=== PATIENT | female | born 1995 | race Caucasian/White ===

== ENCOUNTER 2019-11-05 13:02 | Day surgery (SDC) | payer MEDICAID, SELFPAY ==
[2019-11-05 10:38] VITALS: BMI 21.6
[2019-11-05 13:31] VITALS: BP 121/88; PULSE 80; RESP 18; TEMP 36.5; O2SAT 99
--- NOTE | 2019-11-05 13:52 | ANES.PREANE2 ---
Pre-Anesthetic Assessment Pre-Anesthetic Assessment: Height/Weight: Height 1.63 m Weight 57.153 kg Preop Diagnosis: Catheterizable stomal stenosis Proposed Procedure: Operation Date: 11/05/19 14:35 Proposed Procedures p Cystoscopy 21852 R33.9 dilation of catheterizable stoma(Not Applicable) - Colin Jarrett MD Familial anesthetic complications: NO trouble Was Beta Farideh taken within 24 hours: N/A Last intake: 1 Peppermint at 0954 Social: Social History: No alcohol and No tobacco Exam: Pre-Anes Outpt Exam: alert, oriented x 3, clear to auscultation bilaterally and regular rate & rhythm Airway: Cervical ROM: WNL MP: 2 Dentition: Full Pulmonary: Pulmonary: None reported CV/HEM: CV/HEM: None reported : : None reported Hepatic: Hepatic: None reported GI: GI: None reported Metabolic: Metabolic: None reported Musc/skel: Musc/skel: None reported Neuropsych: Comments: Spina bifida (myelomeninogecele) Lumbar level 4 Anesthetic Plan: ASA status: 3 Anesthesia: General Risk of > 500 ml blood loss (7ml/kg in children): No PFSH Anesthesia PFSH: Social History Smoking and tobacco status: never smoked Alcohol intake: current Alcohol intake frequency: few times a month Marital status: Single Current occupational status: disabled History of recent travel: No Female Reproductive History: Date of last menstrual period: 10/15/19 Data Anesthesia Cardiac Studies: No Data to Display
[2019-11-05] MEDS: sodium chloride 0.9% 1,000 ML 30 ML IV (14:00)
[2019-11-05 14:06] LABS: HCG, Serum Qual Negative (Negative)
[2019-11-05] MEDS: levofloxacin-dextrose 5 % 500 MG/100 ML PREMIX 100 MG IV (14:50)
[2019-11-05 16:11] VITALS: BP 112/77; PULSE 103; RESP 18; TEMP 36.2; O2SAT 100
--- NOTE | 2019-11-05 16:16 | PM.OP ---
Operative Report Date of procedure: November 05, 2019 Pre-op Diagnosis: Catheterizable stomal stenosis Post-op diagnosis: same Procedure Done: Cystoscopy Dilation of catheterizable stoma with difficult catheter placement through stoma. Implants: 7 Cambodian by 24 cm double-pigtail stent with proximal end in the bladder and the distal end through the stoma onto the abdominal wall. Ostomy bag placed over that for urine collection as needed Pathology: none sent Anesthesia: MAC Estimated blood loss: Minimal Findings: Dilated to 12 Cambodian but could only get a 7 Cambodian ureteral stent through. Could not advance a 8 Cambodian or 10 Cambodian Mejia catheter. Ostomy bag placed over the catheter/stent to collect urine that drained through the hollow tube. Condition: stable Disposition: PACU Procedure: After routine preoperative evaluation examination and obtaining informed consent she was taken to the operating suite on 11/05/2019 where general anesthesia was administered without difficulty after appropriate timeout was performed, SCDs confirmed to be functioning, preoperative antibiotics administered and beta-gisele protocol confirmed. A 6 Cambodian mini scope was utilized to visualize the catheterizable stoma. It was not completely clear where the true lumen was but eventually a wire was advanced through a mucosal appearing area in the central aspect and the wire did advance relatively easily. The bladder was then scoped and the wire was identified passing into the bladder. Amplatz dilators were then utilized from 8 Cambodian to 10 Cambodian and the 12 Cambodian could not be passed all the way into the bladder over the wire. Attempts at passing a 10 Cambodian catheter were unsuccessful and for that reason it was decided to place a ureteral stent a 7 Cambodian by 24 cm specifically without string attached. Because of its hollow status knowing that urine would leak out of it an ostomy appliance was placed over the site to try to contain the urine and she was instructed postoperatively to continue self-catheterization per urethra until this was exchanged for a more typical Mejia bag with routine drainage appliance. She tolerated procedure well without complications and was awakened in the operating room and returned to cover in a stable condition. PLANS: 1. Follow-up in 4 to 7 days for inspection of the stent and possibly trial of larger catheter 2. Continue ostomy appliance until reevaluation. Prescription for urostomy specific appliance was written.
[2019-11-05 16:28] VITALS: BP 107/80; PULSE 93; RESP 18; TEMP 36.2; O2SAT 100
--- NOTE | 2019-11-05 16:28 | PM.HPUD ---
H&P update H&P Update: DATE OF SURGERY/PROCEDURE: 11/05/19 DATE H&P PERFORMED: 11/04/19 CHANGES TO PREVIOUS DOCUMENTATION: None PREOP DIAGNOSIS: Catheterizable stomal stenosis PLANNED PROCEDURE: Operation Date: 11/05/19 14:35 Proposed Procedures p Cystoscopy 66186 R33.9 dilation of catheterizable stoma(Not Applicable) - Colin Jarrett MD Full H&P Medications/Allergies: Current Medications: Current Medications Generic Name Dose Route Start Last Admin Trade Name Freq PRN Reason Stop Dose Admin Sodium Chloride 1,000 mls @ 30 ml s/hr 11/05/19 13:00 11/05/19 14:00 Sodium Chloride 0.9% IV 11/06/19 12:59 30 mls/hr .Q24H ADALID Administration Perinent History: Medical/Surgical History: Medical History (Updated 11/04/19 @ 16:20 by Colin Jarrett MD) Neurogenic bladder (Acute) Paraplegia, unspecified (Acute) Stenosis of continent ileal conduit stoma (Acute) Urinary retention (Acute) Spina bifida, neurogenic bladder with retention, treated with augmentation cystoplasty and catheterizable stoma. Family History: Family History Family/Other No problems noted. Social History: Social History Smoking and tobacco status: never smoked Alcohol intake: current Alcohol intake frequency: few times a month Marital status: Single Current occupational status: disabled History of recent travel: No
== END 2019-11-05 17:00 | disposition home or self-care (01) ==
PROVIDERS: PCP Nurse Practitioner; Visit Provider Urology
PROC: 0TJB8ZZ Inspection of Bladder, Via Natural or Artificial Opening Endoscopic (ICD-10-PCS; CPT 52000; principal; 2019-11-05 14:15)
DX: N99.524 Stenosis of incontinent stoma of urinary tract (principal)
CPT/HCPCS: 52281; 12345; 36415; 84703; C2625; J1956; J2250; J2704; J3010; J3490; J7030

== ENCOUNTER → 2020-02-15 16:30 | Outpatient (BNVA) | payer MEDICAID, SELFPAY | PROVIDERS: PCP Nurse Practitioner; Visit Provider Nurse Practitioner Family | DX: Z23 Encounter for immunization (principal); R00.2 Palpitations; F41.9 Anxiety disorder, unspecified; F32.9 Major depressive disorder, single episode, unspecified | CPT/HCPCS: 80053; 80156; 83735; 84439; 84443; 84481; 85025 ==

== ENCOUNTER → 2020-07-26 11:14 | Outpatient (BNVA) | payer MEDICAID, SELFPAY | PROVIDERS: PCP Nurse Practitioner; Visit Provider Nurse Practitioner Family | DX: F32.9 Major depressive disorder, single episode, unspecified (principal); F41.9 Anxiety disorder, unspecified | CPT/HCPCS: 80053; 80156; 85025 ==

== ENCOUNTER 2020-08-31 06:00 | Outpatient (RCR) | payer MEDICAID, SELFPAY | END 2020-09-29 23:59 | disposition home or self-care (01) | LOC: SPT 06:00 | PROVIDERS: PCP Nurse Practitioner Family; Referring Provider Nurse Practitioner Family; Visit Provider Nurse Practitioner Family | DX: M54.6 Pain in thoracic spine (principal); G89.29 Other chronic pain; M54.2 Cervicalgia | CPT/HCPCS: 97110; 97140; 97161 ==

== ENCOUNTER 2020-09-30 06:00 | Outpatient (RCR) | payer MEDICAID, SELFPAY | END 2020-10-30 23:59 | disposition home or self-care (01) | LOC: SPT 06:00 | PROVIDERS: PCP Nurse Practitioner Family; Referring Provider Nurse Practitioner Family; Visit Provider Nurse Practitioner Family | DX: M54.6 Pain in thoracic spine (principal); M54.2 Cervicalgia; G89.29 Other chronic pain | CPT/HCPCS: 97110 ==

== ENCOUNTER 2020-10-31 06:00 | Outpatient (RCR) | payer MEDICAID, SELFPAY | END 2020-11-27 23:59 | disposition home or self-care (01) | LOC: SPT 06:00 | PROVIDERS: PCP Nurse Practitioner Family; Referring Provider Nurse Practitioner Family; Visit Provider Nurse Practitioner Family | DX: M54.2 Cervicalgia (principal); M54.9 Dorsalgia, unspecified | CPT/HCPCS: 97110 ==

== ENCOUNTER 2020-11-28 06:00 | Outpatient (RCR) | payer MEDICAID, SELFPAY | END 2020-12-28 23:59 | disposition home or self-care (01) | LOC: SPT 06:00 | PROVIDERS: PCP Nurse Practitioner Family; Referring Provider Nurse Practitioner Family; Visit Provider Nurse Practitioner Family | DX: M54.6 Pain in thoracic spine (principal); G89.29 Other chronic pain; M54.2 Cervicalgia | CPT/HCPCS: 97110 ==

== ENCOUNTER → 2021-02-09 14:25 | Outpatient (BNVA) | payer MEDICAID, SELFPAY | PROVIDERS: PCP Nurse Practitioner Family; Visit Provider Nurse Practitioner Family | DX: F32.9 Major depressive disorder, single episode, unspecified (principal); F41.9 Anxiety disorder, unspecified; G40.909 Epilepsy, unspecified, not intractable, without status epilepticus; Z68.23 Body mass index [BMI] 23.0-23.9, adult | CPT/HCPCS: 80053; 80156; 84443; 85025 ==

== ENCOUNTER 2021-05-02 15:52 | Outpatient (CLI) | payer MEDICAID, SELFPAY ==
--- NOTE | 2021-05-02 16:07 | XR_ITS ---
WS: [id number] Right foot, 3 views, 05/02/2021 Clinical Data: FOOT PAIN, RIGHT Comparison: None. Findings: No fractures or dislocations are seen. No bone destruction or erosion is noted. The joint spaces and soft tissues are normal. There is demineralization of the bones of the foot. XR/XR foot RT min 3V* 87377 Impression: Negative right foot.
== END 2021-05-02 15:53 | disposition home or self-care (01) ==
PROVIDERS: PCP Nurse Practitioner Family; Visit Provider Nurse Practitioner Family
DX: M79.671 Pain in right foot (principal)
CPT/HCPCS: 73630

== ENCOUNTER → 2021-08-10 00:01 | Outpatient (BNVA) | payer MEDICAID, SELFPAY | PROVIDERS: PCP Nurse Practitioner Family | DX: L08.9 Local infection of the skin and subcutaneous tissue, unspecified (principal) | CPT/HCPCS: 87070; 87077; 87184 ==

== ENCOUNTER → 2021-10-25 13:41 | Outpatient (BNVA) | payer MEDICAID, SELFPAY | PROVIDERS: PCP Nurse Practitioner Family; Visit Provider Nurse Practitioner Family | DX: G40.909 Epilepsy, unspecified, not intractable, without status epilepticus (principal) | CPT/HCPCS: 80053; 80156; 85025 ==

== ENCOUNTER → 2021-12-14 12:00 | Outpatient (BNVA) | payer MEDICAID, SELFPAY | PROVIDERS: PCP Nurse Practitioner Family; Visit Provider Nurse Practitioner Family | DX: J30.9 Allergic rhinitis, unspecified (principal) | CPT/HCPCS: 82785; 86003 ==

== ENCOUNTER → 2022-01-16 13:47 | Outpatient (BNVA) | payer MEDICAID, SELFPAY | PROVIDERS: PCP Nurse Practitioner Family; Visit Provider Nurse Practitioner Family | DX: R30.0 Dysuria (principal) | CPT/HCPCS: 81003; 87077; 87086; 87184 ==

== ENCOUNTER → 2022-02-09 09:03 | Outpatient (BNVA) | payer MEDICAID, SELFPAY | PROVIDERS: PCP Nurse Practitioner Family; Visit Provider Urology | DX: N99.53 Complication of continent stoma of urinary tract (principal); R33.9 Retention of urine, unspecified | CPT/HCPCS: 81003; 99213 ==

== ENCOUNTER → 2022-02-16 09:46 | Outpatient (BNVA) | payer MEDICAID, SELFPAY | PROVIDERS: PCP Nurse Practitioner Family; Visit Provider Surgery | DX: I96 Gangrene, not elsewhere classified (principal); L89.622 Pressure ulcer of left heel, stage 2 | CPT/HCPCS: 99203 ==

== ENCOUNTER 2022-02-16 11:11 | Outpatient (CLI) | payer MEDICAID, SELFPAY ==
--- NOTE | 2022-02-16 13:53 | XR_ITS ---
WS: [id number] Left foot, 3 views, 02/16/2022 Clinical Data: ulcer Comparison: None. Findings: No fractures or dislocations are seen. The joint spaces are normal. There is soft tissue ulceration p osterior to the calcaneus but there is no bone destruction or erosion. The foot is in the flexed position. XR/XR foot LT min 3V* [id number] Impression: 1. Negative for bone destruction or evidence of osteomyelitis. 2. Left foot is fixed in flexion.
== END 2022-02-16 11:12 | disposition home or self-care (01) ==
LOC: RAD 11:15
PROVIDERS: PCP Nurse Practitioner Family; Visit Provider Surgery
DX: L89.622 Pressure ulcer of left heel, stage 2 (principal)
CPT/HCPCS: 73630; 97597; 99213

== ENCOUNTER → 2022-02-23 09:27 | Outpatient (BNVA) | payer MEDICAID, SELFPAY | PROVIDERS: PCP Nurse Practitioner Family; Visit Provider Surgery | DX: L89.622 Pressure ulcer of left heel, stage 2 (principal); I96 Gangrene, not elsewhere classified | CPT/HCPCS: 97597 ==

== ENCOUNTER → 2022-03-02 09:23 | Outpatient (BNVA) | payer MEDICAID, SELFPAY | PROVIDERS: PCP Nurse Practitioner Family; Visit Provider Surgery | DX: I96 Gangrene, not elsewhere classified (principal); L89.622 Pressure ulcer of left heel, stage 2 | CPT/HCPCS: 97597; A6212 ==

== ENCOUNTER → 2022-03-09 09:21 | Outpatient (BNVA) | payer MEDICAID, SELFPAY | PROVIDERS: PCP Nurse Practitioner Family; Visit Provider Nurse Practitioner Family | DX: L89.622 Pressure ulcer of left heel, stage 2 (principal); I96 Gangrene, not elsewhere classified | CPT/HCPCS: 11042; A6212 ==

== ENCOUNTER → 2022-03-16 09:35 | Outpatient (BNVA) | payer MEDICAID, SELFPAY | PROVIDERS: PCP Nurse Practitioner Family; Visit Provider Nurse Practitioner Family | DX: L89.622 Pressure ulcer of left heel, stage 2 (principal); I96 Gangrene, not elsewhere classified | CPT/HCPCS: 11042 ==

== ENCOUNTER → 2022-03-23 09:16 | Outpatient (BNVA) | payer MEDICAID, SELFPAY | PROVIDERS: PCP Nurse Practitioner Family; Visit Provider Nurse Practitioner Family | DX: I96 Gangrene, not elsewhere classified (principal); L89.622 Pressure ulcer of left heel, stage 2 | CPT/HCPCS: 11042 ==

== ENCOUNTER → 2022-03-30 10:36 | Outpatient (BNVA) | payer MEDICAID, SELFPAY | PROVIDERS: PCP Nurse Practitioner Family; Visit Provider Surgery | DX: I96 Gangrene, not elsewhere classified (principal); L89.622 Pressure ulcer of left heel, stage 2 | CPT/HCPCS: 11042; A6197; A6212; A6251 ==

== ENCOUNTER → 2022-04-06 10:32 | Outpatient (BNVA) | payer MEDICAID, SELFPAY | PROVIDERS: PCP Nurse Practitioner Family; Visit Provider Surgery | DX: I96 Gangrene, not elsewhere classified (principal); L89.622 Pressure ulcer of left heel, stage 2 | CPT/HCPCS: 15271; A6206; A6212 ==

== ENCOUNTER → 2022-04-13 10:33 | Outpatient (BNVA) | payer MEDICAID, SELFPAY | PROVIDERS: PCP Nurse Practitioner Family; Visit Provider Surgery | DX: I96 Gangrene, not elsewhere classified (principal); L89.622 Pressure ulcer of left heel, stage 2 | CPT/HCPCS: 15271 ==

== ENCOUNTER → 2022-04-20 09:33 | Outpatient (BNVA) | payer MEDICAID, SELFPAY | PROVIDERS: PCP Nurse Practitioner Family; Visit Provider Nurse Practitioner Family | DX: I96 Gangrene, not elsewhere classified (principal); L89.622 Pressure ulcer of left heel, stage 2 | CPT/HCPCS: 11042 ==

== ENCOUNTER → 2022-04-24 15:14 | Outpatient (BNVA) | payer MEDICAID, SELFPAY | PROVIDERS: PCP Nurse Practitioner Family; Visit Provider Nurse Practitioner Family | DX: I96 Gangrene, not elsewhere classified (principal); L89.622 Pressure ulcer of left heel, stage 2 | CPT/HCPCS: 11042; 87070; 87077; 87186; A6210 ==

== ENCOUNTER → 2022-05-01 09:21 | Outpatient (BNVA) | payer MEDICAID, SELFPAY | PROVIDERS: PCP Nurse Practitioner Family; Visit Provider Nurse Practitioner Family | DX: I96 Gangrene, not elsewhere classified (principal); L89.622 Pressure ulcer of left heel, stage 2 | CPT/HCPCS: 11042 ==

== ENCOUNTER → 2022-05-11 10:02 | Outpatient (BNVA) | payer MEDICAID, SELFPAY | PROVIDERS: PCP Nurse Practitioner Family; Visit Provider Nurse Practitioner Family | DX: I96 Gangrene, not elsewhere classified (principal); L89.622 Pressure ulcer of left heel, stage 2 | CPT/HCPCS: 11042; A6210 ==

== ENCOUNTER 2022-05-14 12:31 | Outpatient (CLI) | payer MEDICAID, SELFPAY ==
--- NOTE | 2022-05-14 12:00 | US_ITS ---
WS: [id number] ULTRASOUND RENAL TECHNIQUE: Ultrasound examination of both kidneys. CLINICAL INFORMATION: Urinary Retention COMPARISON: Ultrasound 1 16019 FINDINGS: Technically difficult examination. Patient with spina bifida and scoliosis. RIGHT: Right kidney is normal appearance. Echogenicity: Normal. Cortical thickness: 1.2 cm; Normal. Hydronephrosis: None. Perinephric fluid: None. Right kidney measures: 7.4 cm x 4.2 cm x 4.1 cm. LEFT: Left kidney is normal appearance. Echogenicity: Normal. Cortical thickness: 1.5 cm; Normal. Hydronephrosis: None. Perinephric fluid: None. Left kidney measures: 8.7 cm x 3.7 cm x 4.5 cm. Normal visualized aorta. US/US renal BI* [id number] IMPRESSION: Technically difficult examination. Normal renal ultrasound.
[2022-05-14 15:32] LABS: Anion Gap 12.6 (5-19); Blood Urea Nitrogen 10 mg/dL (6-20); Calcium 9.1 mg/dL (8.5-10.5); Carbon Dioxide 28 mmol/L (22-29); Chloride 104 mmol/L (98-107); Glucose 77 mg/dL (65-115); Osmolality Calculated 290 mOsm/kg (285-295); Potassium 3.6 mmol/L (3.5-5.1); Sodium 141 mmol/L (136-145)
== END 2022-05-14 12:32 | disposition home or self-care (01) ==
LOC: RAD 12:31
PROVIDERS: PCP Nurse Practitioner Family; Visit Provider Urology
DX: R33.9 Retention of urine, unspecified (principal); N31.9 Neuromuscular dysfunction of bladder, unspecified; N99.53 Complication of continent stoma of urinary tract
CPT/HCPCS: 36415; 76770; 80048; 81000; 99213

== ENCOUNTER → 2022-05-18 09:24 | Outpatient (BNVA) | payer MEDICAID, SELFPAY | PROVIDERS: PCP Nurse Practitioner Family; Visit Provider Nurse Practitioner Family | DX: L89.622 Pressure ulcer of left heel, stage 2 (principal); I96 Gangrene, not elsewhere classified | CPT/HCPCS: 11042; 87070; 87176; 87205 ==

== ENCOUNTER → 2022-05-25 13:47 | Outpatient (BNVA) | payer MEDICAID, SELFPAY | PROVIDERS: PCP Nurse Practitioner Family; Visit Provider Surgery | DX: I96 Gangrene, not elsewhere classified (principal); L89.622 Pressure ulcer of left heel, stage 2 | CPT/HCPCS: 15271; A6206; Q4205 ==

== ENCOUNTER → 2022-06-01 10:28 | Outpatient (BNVA) | payer MEDICAID, SELFPAY | PROVIDERS: PCP Nurse Practitioner Family; Visit Provider Surgery | DX: I96 Gangrene, not elsewhere classified (principal); L89.622 Pressure ulcer of left heel, stage 2 | CPT/HCPCS: 15271; A6207 ==

== ENCOUNTER → 2022-06-08 09:00 | Outpatient (BNVA) | payer MEDICAID, SELFPAY | PROVIDERS: PCP Nurse Practitioner Family; Visit Provider Nurse Practitioner Family | DX: I96 Gangrene, not elsewhere classified (principal); L89.622 Pressure ulcer of left heel, stage 2 | CPT/HCPCS: 15275; Q4205 ==

== ENCOUNTER → 2022-06-15 10:00 | Outpatient (BNVA) | payer MEDICAID, SELFPAY | PROVIDERS: PCP Nurse Practitioner Family; Visit Provider Nurse Practitioner Family | DX: I96 Gangrene, not elsewhere classified (principal); L89.622 Pressure ulcer of left heel, stage 2 | CPT/HCPCS: 15275; A6206; Q4205 ==

== ENCOUNTER → 2022-06-22 09:59 | Outpatient (BNVA) | payer MEDICAID, SELFPAY | PROVIDERS: PCP Nurse Practitioner Family; Visit Provider Surgery | DX: I96 Gangrene, not elsewhere classified (principal); L89.622 Pressure ulcer of left heel, stage 2 | CPT/HCPCS: 11042; 15275; A6206; A6250; Q4205 ==

== ENCOUNTER → 2022-06-29 10:10 | Outpatient (BNVA) | payer MEDICAID, SELFPAY | PROVIDERS: PCP Nurse Practitioner Family; Visit Provider Surgery | DX: I96 Gangrene, not elsewhere classified (principal); L89.622 Pressure ulcer of left heel, stage 2 | CPT/HCPCS: 15275; A6206; Q4205 ==

== ENCOUNTER → 2022-07-06 13:48 | Outpatient (BNVA) | payer MEDICAID, SELFPAY | PROVIDERS: PCP Nurse Practitioner Family; Visit Provider Surgery | DX: I96 Gangrene, not elsewhere classified (principal); L89.622 Pressure ulcer of left heel, stage 2 | CPT/HCPCS: 15271; A6206; A6250; A6251 ==

== ENCOUNTER → 2022-07-13 13:50 | Outpatient (BNVA) | payer MEDICAID, SELFPAY | PROVIDERS: PCP Nurse Practitioner Family; Visit Provider Surgery | DX: I96 Gangrene, not elsewhere classified (principal); L89.622 Pressure ulcer of left heel, stage 2 | CPT/HCPCS: 11042; A6212 ==

== ENCOUNTER 2022-07-17 14:28 | Outpatient (CLI) | payer MEDICAID, SELFPAY ==
--- NOTE | 2022-07-17 14:30 | USCV_ITS ---
Fiona Parnell Age: 26 Gender: F : 1995 Exam Date: 07/17/2022 14:47 Ordering Phys: Alexander Austin MD Technologist: Darinel Krueger [place]am [place] [facility] [place] Indication: pain in left leg PROCEDURES: Venous duplex imaging was performed in only the left lower extremity. The following venous structures were evaluated: common femoral vein, profunda vein, proximal portion of the greater saphenous vein, superficial femoral vein, and the popliteal vein. In addition, the posterior tibial and peroneal trunk were evaluated. Serial compression, augmentation maneuvers, and spectral Doppler flow evaluation were performed. FINDINGS: Normal 2-D Doppler and augmentation and compressibility throughout the lower extremity venous structures. Additional imaging through the proximal calf veins also reveals no thrombus. Limited evaluation of the greater saphenous vein is patent with no thrombus.. CONCLUSIONS No evidence of left lower extremity DVT. Leandro Kauffman MD (Electronically Signed) Final Date: 17 July 2022 15:42 S
== END 2022-07-17 14:29 | disposition home or self-care (01) ==
LOC: RAD 14:28
PROVIDERS: PCP Nurse Practitioner Family; Visit Provider Surgery
DX: M79.605 Pain in left leg (principal)
CPT/HCPCS: 93971

== ENCOUNTER → 2022-07-20 13:49 | Outpatient (BNVA) | payer MEDICAID, SELFPAY | PROVIDERS: PCP Nurse Practitioner Family; Visit Provider Nurse Practitioner Family | DX: I96 Gangrene, not elsewhere classified (principal); L89.622 Pressure ulcer of left heel, stage 2 | CPT/HCPCS: 11042; A6212 ==

== ENCOUNTER → 2022-07-27 09:26 | Outpatient (BNVA) | payer MEDICAID, SELFPAY | PROVIDERS: PCP Nurse Practitioner Family; Visit Provider Nurse Practitioner Family | DX: I96 Gangrene, not elsewhere classified (principal); L89.622 Pressure ulcer of left heel, stage 2 | CPT/HCPCS: 11042 ==

== ENCOUNTER → 2022-07-31 10:01 | Outpatient (BNVA) | payer MEDICAID, SELFPAY | PROVIDERS: PCP Nurse Practitioner Family; Visit Provider Nurse Practitioner Family | DX: I96 Gangrene, not elsewhere classified (principal); L89.622 Pressure ulcer of left heel, stage 2 | CPT/HCPCS: 11042 ==

== ENCOUNTER → 2022-08-10 10:15 | Outpatient (BNVA) | payer MEDICAID, SELFPAY | PROVIDERS: PCP Nurse Practitioner Family; Visit Provider Nurse Practitioner Family | DX: I96 Gangrene, not elsewhere classified (principal); L89.622 Pressure ulcer of left heel, stage 2 | CPT/HCPCS: 11042 ==

== ENCOUNTER → 2022-08-17 13:58 | Outpatient (BNVA) | payer MEDICAID, SELFPAY | PROVIDERS: PCP Nurse Practitioner Family; Visit Provider Surgery | DX: I96 Gangrene, not elsewhere classified (principal); L89.622 Pressure ulcer of left heel, stage 2 | CPT/HCPCS: 11042 ==

== ENCOUNTER → 2022-08-31 10:09 | Outpatient (BNVA) | payer MEDICAID, SELFPAY | PROVIDERS: PCP Nurse Practitioner Family; Visit Provider Nurse Practitioner Family | DX: I96 Gangrene, not elsewhere classified (principal); L89.622 Pressure ulcer of left heel, stage 2 | CPT/HCPCS: 11042 ==

== ENCOUNTER → 2022-09-07 10:19 | Outpatient (BNVA) | payer MEDICAID, SELFPAY | PROVIDERS: PCP Nurse Practitioner Family; Visit Provider Nurse Practitioner Family | DX: I96 Gangrene, not elsewhere classified (principal); L89.622 Pressure ulcer of left heel, stage 2 | CPT/HCPCS: 11042; A6212 ==

== ENCOUNTER → 2022-09-14 09:33 | Outpatient (BNVA) | payer MEDICAID, SELFPAY | PROVIDERS: PCP Nurse Practitioner Family; Visit Provider Surgery | DX: I96 Gangrene, not elsewhere classified (principal); L89.622 Pressure ulcer of left heel, stage 2; G82.20 Paraplegia, unspecified | CPT/HCPCS: 97597; A6212 ==

== ENCOUNTER → 2022-10-05 10:11 | Outpatient (BNVA) | payer MEDICAID, SELFPAY | PROVIDERS: PCP Nurse Practitioner Family; Visit Provider Thoracic Surgery (Cardiothoracic Vascular Surgery) | DX: I96 Gangrene, not elsewhere classified (principal); L89.622 Pressure ulcer of left heel, stage 2 | CPT/HCPCS: 97597; A6021; A6212 ==

== ENCOUNTER → 2022-10-12 10:39 | Outpatient (BNVA) | payer MEDICAID, SELFPAY | PROVIDERS: PCP Nurse Practitioner Family; Visit Provider Thoracic Surgery (Cardiothoracic Vascular Surgery) | DX: I96 Gangrene, not elsewhere classified (principal); L89.622 Pressure ulcer of left heel, stage 2 | CPT/HCPCS: 11042; A6021 ==

== ENCOUNTER → 2022-10-19 10:58 | Outpatient (BNVA) | payer MEDICAID, SELFPAY | PROVIDERS: PCP Nurse Practitioner Family; Visit Provider Thoracic Surgery (Cardiothoracic Vascular Surgery) | DX: I96 Gangrene, not elsewhere classified (principal); L89.622 Pressure ulcer of left heel, stage 2 | CPT/HCPCS: 97597; A6021; A6212 ==

== ENCOUNTER → 2022-10-26 10:46 | Outpatient (BNVA) | payer MEDICAID, SELFPAY | PROVIDERS: PCP Nurse Practitioner Family; Visit Provider Thoracic Surgery (Cardiothoracic Vascular Surgery) | DX: L89.622 Pressure ulcer of left heel, stage 2 (principal) | CPT/HCPCS: 97597; A6021; A6212 ==

== ENCOUNTER → 2022-11-02 10:27 | Outpatient (BNVA) | payer MEDICAID, SELFPAY | PROVIDERS: PCP Nurse Practitioner Family; Visit Provider Thoracic Surgery (Cardiothoracic Vascular Surgery) | DX: Z09 Encounter for follow-up examination after completed treatment for conditions other than malignant neoplasm (principal) | CPT/HCPCS: 99212 ==

== ENCOUNTER 2023-01-08 10:16 | Outpatient (CLI) | payer MEDICAID, SELFPAY ==
--- NOTE | 2023-01-08 10:44 | XR_ITS ---
WS: [id number] EXAMINATION: XR lumbar spine 2-3V* [id number] L-SPINE : 3 views REASON FOR EXAM: M54.9 - Dorsalgia, unspecified COMPARISON: None available. ORDER DATE: 01/08/2023 10:47 AM FINDINGS: There is approximately a 15 degree dextroscoliosis in the lower lumbar region with bridging bar horiz ontal screws on the right lateral aspect of the lumbar spine extending from L1 to L5 with complete ve rtebral body fusion throughout these levels as depicted on the lateral view. The most proximal screw is within T12 and separate from the uterus. This may have occurred as a result of growth of the spine . There is a ventriculoperitoneal shunt catheter in the peritoneal cavity. XR/XR lumbar spine 2-3V* 67635 IMPRESSION: Surgical instrumentation as described above with solid fusion of most of the laureen mbar spine as described.
--- NOTE | 2023-01-08 10:44 | XR_ITS ---
WS: [id number] EXAMINATION: XR thoracic spine 3V* [id number] REASON FOR EXAM: M54.9 - Dorsalgia, unspecified COMPARISON: Recent previous studies ORDER DATE: 01/08/2023 10:47 AM FINDINGS: There is approximately a 12 degree lumbar levoscoliosis originating at approximately the T7-8 level w ith compensatory dextrocurvature in the lumbar region with previous surgical instrumentation as noted . Ventriculoperitoneal shunt catheters are present. No specific focal osseous change noted in the tho racic vertebral bodies. XR/XR thoracic spine 3V* 60495 IMPRESSION: No sign of acute osseous change in the dorsal spine
== END 2023-01-08 10:17 | disposition home or self-care (01) ==
LOC: RAD 10:19
PROVIDERS: PCP Nurse Practitioner Family; Visit Provider Nurse Practitioner Family
DX: M54.9 Dorsalgia, unspecified (principal)
CPT/HCPCS: 72072; 72100

== ENCOUNTER → 2023-04-09 13:50 | Outpatient (BNVA) | payer MEDICAID, SELFPAY | PROVIDERS: PCP Nurse Practitioner Family; Visit Provider Family Medicine | DX: J02.9 Acute pharyngitis, unspecified (principal); L25.9 Unspecified contact dermatitis, unspecified cause | CPT/HCPCS: 87071; 87880 ==

== ENCOUNTER → 2023-06-27 09:08 | Outpatient (BNVA) | payer MEDICAID, SELFPAY | PROVIDERS: PCP Nurse Practitioner Family; Visit Provider Nurse Practitioner Family | DX: I96 Gangrene, not elsewhere classified (principal); L89.622 Pressure ulcer of left heel, stage 2 | CPT/HCPCS: 97597; 99213; A6210; A6212 ==

== ENCOUNTER → 2023-07-11 10:10 | Outpatient (BNVA) | payer MEDICAID, SELFPAY | PROVIDERS: PCP Nurse Practitioner Family; Visit Provider Nurse Practitioner Family | DX: L89.622 Pressure ulcer of left heel, stage 2 (principal) | CPT/HCPCS: 97597; A6210; A6212 ==

== ENCOUNTER → 2023-07-18 08:48 | Outpatient (BNVA) | payer MEDICAID, SELFPAY | PROVIDERS: PCP Nurse Practitioner Family; Visit Provider Nurse Practitioner Family | DX: L89.622 Pressure ulcer of left heel, stage 2 (principal) | CPT/HCPCS: 97597; A6210; A6212 ==

== ENCOUNTER → 2023-07-25 10:03 | Outpatient (BNVA) | payer MEDICAID, SELFPAY | PROVIDERS: PCP Nurse Practitioner Family; Visit Provider Nurse Practitioner Family | DX: L89.622 Pressure ulcer of left heel, stage 2 (principal) | CPT/HCPCS: 97597; A6210 ==

== ENCOUNTER → 2023-08-01 10:07 | Outpatient (BNVA) | payer MEDICAID, SELFPAY | PROVIDERS: PCP Nurse Practitioner Family; Visit Provider Nurse Practitioner Family | DX: I96 Gangrene, not elsewhere classified (principal); L89.622 Pressure ulcer of left heel, stage 2 | CPT/HCPCS: 97597; A6210 ==

== ENCOUNTER → 2023-08-08 09:50 | Outpatient (BNVA) | payer MEDICAID, SELFPAY | PROVIDERS: PCP Nurse Practitioner Family; Visit Provider Nurse Practitioner Family | DX: L89.622 Pressure ulcer of left heel, stage 2 (principal) | CPT/HCPCS: 97597; A6210 ==

== ENCOUNTER → 2023-08-15 10:46 | Outpatient (BNVA) | payer MEDICAID, SELFPAY | PROVIDERS: PCP Nurse Practitioner Family; Visit Provider Nurse Practitioner Family | DX: L89.622 Pressure ulcer of left heel, stage 2 (principal); S91.301A Unspecified open wound, right foot, initial encounter; W22.8XXA Striking against or struck by other objects, initial encounter; G82.20 Paraplegia, unspecified | CPT/HCPCS: 97597; 99212; A6210 ==

== ENCOUNTER → 2023-08-29 10:30 | Outpatient (BNVA) | payer MEDICAID, SELFPAY | PROVIDERS: PCP Nurse Practitioner Family; Visit Provider Nurse Practitioner Family | DX: L89.622 Pressure ulcer of left heel, stage 2 (principal); L89.892 Pressure ulcer of other site, stage 2 | CPT/HCPCS: 11042; A6210; A6219 ==

== ENCOUNTER → 2023-09-05 09:50 | Outpatient (BNVA) | payer MEDICAID, SELFPAY | PROVIDERS: PCP Nurse Practitioner Family; Visit Provider Nurse Practitioner Family | DX: I96 Gangrene, not elsewhere classified (principal); L89.622 Pressure ulcer of left heel, stage 2; L89.892 Pressure ulcer of other site, stage 2; G82.20 Paraplegia, unspecified | CPT/HCPCS: 97597; A6210; A6219 ==

== ENCOUNTER → 2023-09-12 08:40 | Outpatient (BNVA) | payer MEDICAID, SELFPAY | PROVIDERS: PCP Nurse Practitioner Family; Visit Provider Nurse Practitioner Family | DX: I96 Gangrene, not elsewhere classified (principal); L89.893 Pressure ulcer of other site, stage 3; L89.622 Pressure ulcer of left heel, stage 2 | CPT/HCPCS: 97597; A6210 ==

== ENCOUNTER → 2023-09-19 08:46 | Outpatient (BNVA) | payer MEDICAID, SELFPAY | PROVIDERS: PCP Nurse Practitioner Family; Visit Provider Thoracic Surgery (Cardiothoracic Vascular Surgery) | DX: I96 Gangrene, not elsewhere classified (principal); L89.893 Pressure ulcer of other site, stage 3; L89.622 Pressure ulcer of left heel, stage 2 | CPT/HCPCS: 11042; 97597; A6210 ==

== ENCOUNTER → 2023-09-26 08:49 | Outpatient (BNVA) | payer MEDICAID, SELFPAY | PROVIDERS: PCP Nurse Practitioner Family; Visit Provider Nurse Practitioner Family | DX: L89.893 Pressure ulcer of other site, stage 3 (principal); Z09 Encounter for follow-up examination after completed treatment for conditions other than malignant neoplasm; G82.20 Paraplegia, unspecified | CPT/HCPCS: 97597; A6210 ==

== ENCOUNTER → 2023-10-02 16:10 | Outpatient (BNVA) | payer MEDICAID, SELFPAY | PROVIDERS: PCP Nurse Practitioner Family; Visit Provider Nurse Practitioner Family | DX: G40.909 Epilepsy, unspecified, not intractable, without status epilepticus (principal); F41.9 Anxiety disorder, unspecified; F32.9 Major depressive disorder, single episode, unspecified; R00.2 Palpitations; J30.9 Allergic rhinitis, unspecified | CPT/HCPCS: 80053; 80061; 80157; 82306; 82607; 84443; 85025 ==

== ENCOUNTER → 2023-10-03 08:46 | Outpatient (BNVA) | payer MEDICAID, SELFPAY | PROVIDERS: PCP Nurse Practitioner Family; Visit Provider Nurse Practitioner Family | DX: I96 Gangrene, not elsewhere classified (principal); L89.893 Pressure ulcer of other site, stage 3 | CPT/HCPCS: 97597; A6210 ==

== ENCOUNTER → 2023-10-10 09:52 | Outpatient (BNVA) | payer MEDICAID, SELFPAY | PROVIDERS: PCP Nurse Practitioner Family; Visit Provider Nurse Practitioner Family | DX: I96 Gangrene, not elsewhere classified (principal); L97.412 Non-pressure chronic ulcer of right heel and midfoot with fat layer exposed | CPT/HCPCS: 97597 ==

== ENCOUNTER → 2023-10-17 09:00 | Outpatient (BNVA) | payer MEDICAID, SELFPAY | PROVIDERS: PCP Nurse Practitioner Family; Visit Provider Nurse Practitioner Family | DX: I96 Gangrene, not elsewhere classified (principal); L97.412 Non-pressure chronic ulcer of right heel and midfoot with fat layer exposed | CPT/HCPCS: 11042; A6252 ==

== ENCOUNTER → 2023-10-24 14:19 | Outpatient (BNVA) | payer MEDICAID, SELFPAY | PROVIDERS: PCP Nurse Practitioner Family; Visit Provider Nurse Practitioner Family | DX: L97.522 Non-pressure chronic ulcer of other part of left foot with fat layer exposed (principal) | CPT/HCPCS: 97597; A6210 ==

== ENCOUNTER → 2023-10-31 09:20 | Outpatient (BNVA) | payer MEDICAID, SELFPAY | PROVIDERS: PCP Nurse Practitioner Family; Visit Provider Nurse Practitioner Family | DX: I96 Gangrene, not elsewhere classified (principal); L97.512 Non-pressure chronic ulcer of other part of right foot with fat layer exposed | CPT/HCPCS: 97597 ==

== ENCOUNTER → 2023-11-07 09:10 | Outpatient (BNVA) | payer MEDICAID, SELFPAY | PROVIDERS: PCP Nurse Practitioner Family; Visit Provider Thoracic Surgery (Cardiothoracic Vascular Surgery) | DX: I96 Gangrene, not elsewhere classified (principal); L97.512 Non-pressure chronic ulcer of other part of right foot with fat layer exposed | CPT/HCPCS: 97597 ==

== ENCOUNTER → 2023-11-11 09:59 | Outpatient (BNVA) | payer MEDICAID, SELFPAY | PROVIDERS: PCP Nurse Practitioner Family; Visit Provider Nurse Practitioner Family | DX: E53.8 Deficiency of other specified B group vitamins (principal) | CPT/HCPCS: 82607; 82746 ==

== ENCOUNTER → 2023-11-14 08:56 | Outpatient (BNVA) | payer MEDICAID, SELFPAY | PROVIDERS: PCP Nurse Practitioner Family; Visit Provider Thoracic Surgery (Cardiothoracic Vascular Surgery) | DX: E11.52 Type 2 diabetes mellitus with diabetic peripheral angiopathy with gangrene (principal); E11.621 Type 2 diabetes mellitus with foot ulcer; L97.522 Non-pressure chronic ulcer of other part of left foot with fat layer exposed | CPT/HCPCS: 97597 ==

== ENCOUNTER → 2023-11-21 08:58 | Outpatient (BNVA) | payer MEDICAID, SELFPAY | PROVIDERS: PCP Nurse Practitioner Family; Visit Provider Thoracic Surgery (Cardiothoracic Vascular Surgery) | DX: I96 Gangrene, not elsewhere classified (principal); L97.412 Non-pressure chronic ulcer of right heel and midfoot with fat layer exposed | CPT/HCPCS: 97597 ==

== ENCOUNTER → 2023-11-28 08:57 | Outpatient (BNVA) | payer MEDICAID, SELFPAY | PROVIDERS: PCP Nurse Practitioner Family; Visit Provider Thoracic Surgery (Cardiothoracic Vascular Surgery) | DX: I96 Gangrene, not elsewhere classified (principal); L97.511 Non-pressure chronic ulcer of other part of right foot limited to breakdown of skin | CPT/HCPCS: 97597; A6021; A6210 ==

== ENCOUNTER → 2023-12-05 09:52 | Outpatient (BNVA) | payer MEDICAID, SELFPAY | PROVIDERS: PCP Nurse Practitioner Family; Visit Provider Thoracic Surgery (Cardiothoracic Vascular Surgery) | DX: Z09 Encounter for follow-up examination after completed treatment for conditions other than malignant neoplasm (principal); Z87.2 Personal history of diseases of the skin and subcutaneous tissue | CPT/HCPCS: 99212 ==

== ENCOUNTER → 2024-02-27 08:54 | Outpatient (BNVA) | payer MEDICAID, SELFPAY | PROVIDERS: PCP Nurse Practitioner Family; Visit Provider Thoracic Surgery (Cardiothoracic Vascular Surgery) | DX: I96 Gangrene, not elsewhere classified (principal); L97.521 Non-pressure chronic ulcer of other part of left foot limited to breakdown of skin | CPT/HCPCS: 97597; 99213; A6021 ==

== ENCOUNTER → 2024-03-05 09:07 | Outpatient (BNVA) | payer MEDICAID, SELFPAY | PROVIDERS: PCP Nurse Practitioner Family; Visit Provider Thoracic Surgery (Cardiothoracic Vascular Surgery) | DX: I96 Gangrene, not elsewhere classified (principal); L97.511 Non-pressure chronic ulcer of other part of right foot limited to breakdown of skin | CPT/HCPCS: 97597 ==

== ENCOUNTER → 2024-03-12 08:53 | Outpatient (BNVA) | payer MEDICAID, SELFPAY | PROVIDERS: PCP Nurse Practitioner Family; Visit Provider Thoracic Surgery (Cardiothoracic Vascular Surgery) | DX: L89.892 Pressure ulcer of other site, stage 2 (principal) | CPT/HCPCS: 97597 ==

== ENCOUNTER → 2024-03-18 09:15 | Outpatient (BNVA) | payer MEDICAID, SELFPAY | PROVIDERS: PCP Nurse Practitioner Family; Visit Provider Nurse Practitioner Family | DX: R56.9 Unspecified convulsions (principal); E53.8 Deficiency of other specified B group vitamins; Z79.899 Other long term (current) drug therapy | CPT/HCPCS: 80053; 80061; 80157; 82306; 82607; 85025 ==

== ENCOUNTER → 2024-03-19 10:28 | Outpatient (BNVA) | payer MEDICAID, SELFPAY | PROVIDERS: PCP Nurse Practitioner Family; Visit Provider Thoracic Surgery (Cardiothoracic Vascular Surgery) | DX: L89.892 Pressure ulcer of other site, stage 2 (principal) | CPT/HCPCS: 97597; A6212 ==

== ENCOUNTER → 2024-03-26 10:27 | Outpatient (BNVA) | payer MEDICAID, SELFPAY | PROVIDERS: PCP Nurse Practitioner Family; Visit Provider Thoracic Surgery (Cardiothoracic Vascular Surgery) | DX: Z09 Encounter for follow-up examination after completed treatment for conditions other than malignant neoplasm (principal); Z87.2 Personal history of diseases of the skin and subcutaneous tissue | CPT/HCPCS: 99212 ==

== ENCOUNTER → 2024-08-06 13:51 | Outpatient (BNVA) | payer MEDICAID, SELFPAY | PROVIDERS: PCP Nurse Practitioner Family; Visit Provider Thoracic Surgery (Cardiothoracic Vascular Surgery) | DX: L89.893 Pressure ulcer of other site, stage 3 (principal) | CPT/HCPCS: 97597; 99213; A6021 ==

== ENCOUNTER → 2024-08-13 14:26 | Outpatient (BNVA) | payer MEDICAID, SELFPAY | PROVIDERS: PCP Nurse Practitioner Family; Visit Provider Thoracic Surgery (Cardiothoracic Vascular Surgery) | DX: I96 Gangrene, not elsewhere classified (principal); L89.893 Pressure ulcer of other site, stage 3; Q05.9 Spina bifida, unspecified | CPT/HCPCS: 97597 ==

== ENCOUNTER → 2024-08-20 11:08 | Outpatient (BNVA) | payer MEDICAID, SELFPAY | PROVIDERS: PCP Nurse Practitioner Family; Visit Provider Thoracic Surgery (Cardiothoracic Vascular Surgery) | DX: L89.893 Pressure ulcer of other site, stage 3 (principal) | CPT/HCPCS: 97597 ==

== ENCOUNTER → 2024-08-26 11:05 | Outpatient (BNVA) | payer MEDICAID, SELFPAY | PROVIDERS: PCP Nurse Practitioner Family; Visit Provider Thoracic Surgery (Cardiothoracic Vascular Surgery) | DX: I96 Gangrene, not elsewhere classified (principal); L89.893 Pressure ulcer of other site, stage 3 | CPT/HCPCS: 97597 ==

== ENCOUNTER → 2024-09-02 10:40 | Outpatient (BNVA) | payer MEDICAID, SELFPAY | PROVIDERS: PCP Nurse Practitioner Family; Visit Provider Thoracic Surgery (Cardiothoracic Vascular Surgery) | DX: I96 Gangrene, not elsewhere classified (principal); L89.893 Pressure ulcer of other site, stage 3 | CPT/HCPCS: 11042 ==

== ENCOUNTER → 2024-09-10 09:45 | Outpatient (BNVA) | payer MEDICAID, SELFPAY | PROVIDERS: PCP Nurse Practitioner Family; Visit Provider Thoracic Surgery (Cardiothoracic Vascular Surgery) | DX: I96 Gangrene, not elsewhere classified (principal); L89.893 Pressure ulcer of other site, stage 3 | CPT/HCPCS: 11042; 87070; 87176; 87205 ==

== ENCOUNTER → 2024-09-17 10:44 | Outpatient (BNVA) | payer MEDICAID, SELFPAY | PROVIDERS: PCP Nurse Practitioner Family; Visit Provider Thoracic Surgery (Cardiothoracic Vascular Surgery) | DX: I96 Gangrene, not elsewhere classified (principal); L89.893 Pressure ulcer of other site, stage 3 | CPT/HCPCS: 97597; A6210 ==

== ENCOUNTER → 2024-09-29 09:38 | Outpatient (BNVA) | payer MEDICAID, SELFPAY | PROVIDERS: PCP Nurse Practitioner Family; Visit Provider Thoracic Surgery (Cardiothoracic Vascular Surgery) | DX: I96 Gangrene, not elsewhere classified (principal); L89.893 Pressure ulcer of other site, stage 3 | CPT/HCPCS: 11042; A6021 ==

== ENCOUNTER 2024-10-08 11:44 | Outpatient (CLI) | payer MEDICAID, SELFPAY ==
--- NOTE | 2024-10-08 11:45 | XR_ITS ---
WS: [id number] Right foot, 3 views, 10/08/2024 Clinical Data: L97.512 - Non-pressure chronic ulcer of other part of rig... Comparison: Right foot, 05/02/2021 Findings: No fractures or dislocations are seen. No bone destruction is noted. There is soft tissue erosion at the base of the right fifth metatarsal. There is demineralization of the right foot. There is flexion deformity of the foot. There is soft ti ssue swelling on the dorsum and plantar surface of the foot. XR/XR foot RT min 3V* 44310 Impression: 1. Soft tissue ulcer adjacent to base of right fifth metatarsal. 2. Negative for bone erosion or osteomyelitis. 3. Demineralization of the bones of the right foot with flexion deformity and d orsal and plantar swelling.
== END 2024-10-08 11:45 | disposition home or self-care (01) ==
LOC: RAD 11:45
PROVIDERS: PCP Nurse Practitioner Family; Visit Provider Thoracic Surgery (Cardiothoracic Vascular Surgery)
DX: L97.512 Non-pressure chronic ulcer of other part of right foot with fat layer exposed (principal); G82.20 Paraplegia, unspecified; M85.871 Other specified disorders of bone density and structure, right ankle and foot; I96 Gangrene, not elsewhere classified; L89.893 Pressure ulcer of other site, stage 3
CPT/HCPCS: 11042; 73630

== ENCOUNTER → 2024-10-15 09:42 | Outpatient (BNVA) | payer MEDICAID, SELFPAY | PROVIDERS: PCP Nurse Practitioner Family | DX: I96 Gangrene, not elsewhere classified (principal); L89.893 Pressure ulcer of other site, stage 3 | CPT/HCPCS: 11042; A6210 ==

== ENCOUNTER → 2024-10-16 10:52 | Outpatient (BNVA) | payer MEDICAID, SELFPAY | PROVIDERS: PCP Nurse Practitioner Family; Visit Provider Nurse Practitioner Family | DX: E53.8 Deficiency of other specified B group vitamins (principal); G40.909 Epilepsy, unspecified, not intractable, without status epilepticus; E55.9 Vitamin D deficiency, unspecified; Z79.899 Other long term (current) drug therapy | CPT/HCPCS: 80053; 80061; 80157; 82306; 82607; 83036; 85025 ==

== ENCOUNTER → 2024-10-22 10:10 | Outpatient (BNVA) | payer MEDICAID, SELFPAY | PROVIDERS: PCP Nurse Practitioner Family | DX: I96 Gangrene, not elsewhere classified (principal); L89.893 Pressure ulcer of other site, stage 3 | CPT/HCPCS: 11042; A6210 ==

== ENCOUNTER → 2024-10-29 10:26 | Outpatient (BNVA) | payer MEDICAID, SELFPAY | PROVIDERS: PCP Nurse Practitioner Family | DX: I96 Gangrene, not elsewhere classified (principal); L89.893 Pressure ulcer of other site, stage 3 | CPT/HCPCS: 11042 ==

== ENCOUNTER → 2024-11-05 13:00 | Outpatient (BNVA) | payer MEDICAID, SELFPAY | PROVIDERS: PCP Nurse Practitioner Family | DX: I96 Gangrene, not elsewhere classified (principal); L89.893 Pressure ulcer of other site, stage 3 | CPT/HCPCS: 11042; A6210 ==

== ENCOUNTER → 2024-11-12 10:49 | Outpatient (BNVA) | payer MEDICAID, SELFPAY | PROVIDERS: PCP Nurse Practitioner Family | DX: L89.893 Pressure ulcer of other site, stage 3 (principal) | CPT/HCPCS: 11042; A6210; A6212 ==

== ENCOUNTER → 2024-11-26 11:08 | Outpatient (BNVA) | payer MEDICAID, SELFPAY | PROVIDERS: PCP Nurse Practitioner Family | DX: I96 Gangrene, not elsewhere classified (principal); L89.893 Pressure ulcer of other site, stage 3 | CPT/HCPCS: 97597 ==

== ENCOUNTER 2024-12-03 16:15 | Outpatient (CLI) | payer MEDICAID, SELFPAY ==
--- NOTE | 2024-12-03 16:21 | CT_ITS ---
WS: [id number] CT ABDOMEN AND PELVIS WITH AND WITHOUT CONTRAST HISTORY: APPENDICOVESIOSTOMY STOMAL STENOSIS, SPINA BIFIDA TECHNIQUE: Unenhanced 3 mm axial imaging first performed through the abdomen. Post contrast imaging through the abdomen and pelvis. Oral contrast has not been provided. Sagittal and coronal reformats are submitted. All CT scans at [facility] use at least one of these dose optimization techniques: automated exposure control; mA and/or kV adjustment per patient size (includes targeted exams where dose is matched to clinical indication); or iterative reconstruction. CONTRAST: Omnipaque 350; 95 mL IV. DLP: 2568.03 mGy.cm COMPARISON: 03/06/2024 Lung bases are clear. Normal size heart. Small hiatal hernia. Two shunt catheters are noted entering the peritoneal cavity in the RIGHT upper abdomen. One of the catheters extends around the RIGHT lobe of the liver. The additional catheter terminates in the LEFT lower quadrant. Normal appearance of the liver, spleen and pancreas. Gallbladder is contracted with no adjacent inflammation. Normal adrenal glands. No renal obstruction. No ascites or adenopathy. There is a Mejia catheter in the urinary bladder. Urinary bladder is minimally distended. There is a tubular connection from the RIGHT lateral superior urinary bladder extending anteriorly and towards the umbilicus. This is likely the appendicovesicostomy extending through the umbilicus. No urine is extending into this tract on the delayed imaging. The orifice of the appendiceal insertion was covered with excreted contrast in the bladder. Ureters are very mildly prominent but no obstructive lesions are identified. No hydronephrosis. Extensive thoracolumbar fusion hardware T11-L5. Gap and hardware along the RIGHT Rust lindsey between T11 and T12. Patient has known spina bifida. CT/CT abdomen pelvis wo/w 59459 IMPRESSION: 1. No change in the appendicovesicostomy surgical site since 03/06/2024. On the delayed imaging the contrast in the urinary bladder does not extend into the ap pendiceal tract. Ostomy site is noted extending to the umbilical level. 2. Mejia catheter present in the urinary bladder. 3. Peritoneal shunt catheters x2.
[2024-12-03] MEDS: iohexol 350 mg/mL 500 mL Btl (per mL) IV (16:45)
== END 2024-12-03 16:16 | disposition home or self-care (01) ==
PROVIDERS: PCP Nurse Practitioner Family; Visit Provider Urology
DX: N99.524 Stenosis of incontinent stoma of urinary tract (principal); Q05.9 Spina bifida, unspecified; K44.9 Diaphragmatic hernia without obstruction or gangrene; Z96.89 Presence of other specified functional implants; R93.5 Abnormal findings on diagnostic imaging of other abdominal regions, including retroperitoneum; Z98.1 Arthrodesis status; Z09 Encounter for follow-up examination after completed treatment for conditions other than malignant neoplasm
CPT/HCPCS: 74178; 99212; A6210

== ENCOUNTER → 2024-12-17 09:37 | Outpatient (BNVA) | payer MEDICAID, SELFPAY | PROVIDERS: PCP Nurse Practitioner Family | DX: Z09 Encounter for follow-up examination after completed treatment for conditions other than malignant neoplasm (principal); R23.4 Changes in skin texture | CPT/HCPCS: A6210 ==

== ENCOUNTER → 2025-01-14 10:59 | Outpatient (BNVA) | payer MEDICAID, SELFPAY | PROVIDERS: PCP Nurse Practitioner Family | DX: I96 Gangrene, not elsewhere classified (principal); L89.893 Pressure ulcer of other site, stage 3 | CPT/HCPCS: 11042; A6021 ==

== ENCOUNTER → 2025-01-21 13:38 | Outpatient (BNVA) | payer MEDICAID, SELFPAY | PROVIDERS: PCP Nurse Practitioner Family | DX: I96 Gangrene, not elsewhere classified (principal); L89.893 Pressure ulcer of other site, stage 3 | CPT/HCPCS: 97597; A6021 ==

== ENCOUNTER → 2025-02-04 15:27 | Outpatient (BNVA) | payer MEDICAID, SELFPAY | PROVIDERS: PCP Nurse Practitioner Family | DX: I96 Gangrene, not elsewhere classified (principal); L97.521 Non-pressure chronic ulcer of other part of left foot limited to breakdown of skin | CPT/HCPCS: 97597; A6021 ==

== ENCOUNTER → 2025-02-08 15:04 | Outpatient (BNVA) | payer MEDICAID, SELFPAY | PROVIDERS: PCP Nurse Practitioner Family; Visit Provider Nurse Practitioner Family | DX: L03.311 Cellulitis of abdominal wall (principal) | CPT/HCPCS: 87070; 87075; 87205 ==

== ENCOUNTER → 2025-02-09 15:29 | Outpatient (BNVA) | payer MEDICAID, SELFPAY | PROVIDERS: PCP Nurse Practitioner Family | DX: I96 Gangrene, not elsewhere classified (principal); L89.893 Pressure ulcer of other site, stage 3 | CPT/HCPCS: 97597 ==

== ENCOUNTER → 2025-02-16 14:53 | Outpatient (BNVA) | payer MEDICAID, SELFPAY | PROVIDERS: PCP Nurse Practitioner Family; Visit Provider Thoracic Surgery (Cardiothoracic Vascular Surgery) | DX: I96 Gangrene, not elsewhere classified (principal); L89.893 Pressure ulcer of other site, stage 3 | CPT/HCPCS: 97597; A6212; A6248 ==

== ENCOUNTER → 2025-02-24 09:42 | Outpatient (BNVA) | payer MEDICAID, SELFPAY | PROVIDERS: PCP Nurse Practitioner Family; Visit Provider Thoracic Surgery (Cardiothoracic Vascular Surgery) | DX: I96 Gangrene, not elsewhere classified (principal); L89.893 Pressure ulcer of other site, stage 3 | CPT/HCPCS: 97597 ==

== ENCOUNTER → 2025-03-02 10:42 | Outpatient (BNVA) | payer MEDICAID, SELFPAY | PROVIDERS: PCP Nurse Practitioner Family; Visit Provider Thoracic Surgery (Cardiothoracic Vascular Surgery) | DX: I96 Gangrene, not elsewhere classified (principal); L89.893 Pressure ulcer of other site, stage 3 | CPT/HCPCS: 97597; A6210; A6212 ==

== ENCOUNTER → 2025-03-09 11:00 | Outpatient (BNVA) | payer MEDICAID, SELFPAY | PROVIDERS: PCP Nurse Practitioner Family; Visit Provider Nurse Practitioner Family | DX: F41.9 Anxiety disorder, unspecified (principal); F32.9 Major depressive disorder, single episode, unspecified | CPT/HCPCS: 80053; 82306; 82607; 83735; 84443; 85025 ==

== ENCOUNTER → 2025-03-10 11:15 | Outpatient (BNVA) | payer MEDICAID, SELFPAY | PROVIDERS: PCP Nurse Practitioner Family | DX: L89.893 Pressure ulcer of other site, stage 3 (principal) | CPT/HCPCS: 97597; A6212 ==

== ENCOUNTER → 2025-03-18 10:53 | Outpatient (BNVA) | payer MEDICAID, SELFPAY | PROVIDERS: PCP Nurse Practitioner Family | DX: I96 Gangrene, not elsewhere classified (principal); L89.893 Pressure ulcer of other site, stage 3 | CPT/HCPCS: 11042; 87070; 87176; 87205 ==

== ENCOUNTER 2025-03-25 10:54 | Outpatient (CLI) | payer MEDICAID, SELFPAY ==
--- NOTE | 2025-03-25 10:56 | XR_ITS ---
WS: [id number] Exam: XR foot RT min 3V* [id number] Date/Time of Exam: 03/25/2025 11:01 AM Reason For Exam: r/o osteomyelitis Comparison 10/08/2024. No acute fracture. Osteopenia. Soft tissue swelling about the foot and ankle. Again noted is flexion of the ankle. No sign of bone destruction. Probable soft tissue ulcer near the base of the fifth metatarsal laterally. XR/XR foot RT min 3V* [id number] IMPRESSION: 1. No fracture or bone destruction identified. 2. Osteopenia, soft tissue swelling and flexion deformity of the foot and ankle .
== END 2025-03-25 10:55 | disposition home or self-care (01) ==
LOC: RAD 10:55
PROVIDERS: PCP Nurse Practitioner Family
DX: M85.871 Other specified disorders of bone density and structure, right ankle and foot (principal); M79.89 Other specified soft tissue disorders; R93.6 Abnormal findings on diagnostic imaging of limbs; I96 Gangrene, not elsewhere classified; L89.893 Pressure ulcer of other site, stage 3
CPT/HCPCS: 73630; 97597; A6210

== ENCOUNTER → 2025-04-05 11:03 | Outpatient (BNVA) | payer MEDICAID, SELFPAY | PROVIDERS: PCP Nurse Practitioner Family; Visit Provider Thoracic Surgery (Cardiothoracic Vascular Surgery) | DX: I96 Gangrene, not elsewhere classified (principal); L89.893 Pressure ulcer of other site, stage 3 | CPT/HCPCS: 97597 ==

== ENCOUNTER → 2025-04-12 10:41 | Outpatient (BNVA) | payer MEDICAID, SELFPAY | PROVIDERS: PCP Nurse Practitioner Family; Visit Provider Thoracic Surgery (Cardiothoracic Vascular Surgery) | DX: I96 Gangrene, not elsewhere classified (principal); L89.893 Pressure ulcer of other site, stage 3 | CPT/HCPCS: 97597; A6197 ==

== ENCOUNTER → 2025-04-19 13:25 | Outpatient (BNVA) | payer MEDICAID, SELFPAY | PROVIDERS: PCP Nurse Practitioner Family; Visit Provider Thoracic Surgery (Cardiothoracic Vascular Surgery) | DX: I96 Gangrene, not elsewhere classified (principal); L89.893 Pressure ulcer of other site, stage 3 | CPT/HCPCS: 97597; A6197 ==

== ENCOUNTER → 2025-04-26 13:16 | Outpatient (BNVA) | payer MEDICAID, SELFPAY | PROVIDERS: PCP Nurse Practitioner Family; Visit Provider Thoracic Surgery (Cardiothoracic Vascular Surgery) | DX: I96 Gangrene, not elsewhere classified (principal); L89.893 Pressure ulcer of other site, stage 3 | CPT/HCPCS: 97597; A6197 ==

== ENCOUNTER → 2025-05-10 11:13 | Outpatient (BNVA) | payer MEDICAID, SELFPAY | PROVIDERS: PCP Nurse Practitioner Family; Visit Provider Thoracic Surgery (Cardiothoracic Vascular Surgery) | DX: L89.893 Pressure ulcer of other site, stage 3 (principal) | CPT/HCPCS: 97597; A6197 ==

== ENCOUNTER → 2025-05-17 11:04 | Outpatient (BNVA) | payer MEDICAID, SELFPAY | PROVIDERS: PCP Nurse Practitioner Family; Visit Provider Thoracic Surgery (Cardiothoracic Vascular Surgery) | DX: I96 Gangrene, not elsewhere classified (principal); L89.893 Pressure ulcer of other site, stage 3 | CPT/HCPCS: 97597; A6197 ==

== ENCOUNTER → 2025-06-02 11:05 | Outpatient (BNVA) | payer MEDICAID, SELFPAY | PROVIDERS: PCP Nurse Practitioner Family; Visit Provider Thoracic Surgery (Cardiothoracic Vascular Surgery) | DX: I96 Gangrene, not elsewhere classified (principal); L89.893 Pressure ulcer of other site, stage 3 | CPT/HCPCS: 15275; A6021; A6206; Q4186 ==

== ENCOUNTER → 2025-06-09 09:12 | Outpatient (BNVA) | payer MEDICAID, SELFPAY | PROVIDERS: PCP Nurse Practitioner Family; Visit Provider Thoracic Surgery (Cardiothoracic Vascular Surgery) | DX: I96 Gangrene, not elsewhere classified (principal); L89.893 Pressure ulcer of other site, stage 3 | CPT/HCPCS: 97597 ==

== ENCOUNTER → 2025-06-16 09:55 | Outpatient (BNVA) | payer MEDICAID, SELFPAY | PROVIDERS: PCP Nurse Practitioner Family; Visit Provider Thoracic Surgery (Cardiothoracic Vascular Surgery) | DX: I96 Gangrene, not elsewhere classified (principal); L89.893 Pressure ulcer of other site, stage 3 | CPT/HCPCS: 97597 ==

== ENCOUNTER → 2025-06-21 15:09 | Outpatient (BNVA) | payer MEDICAID, SELFPAY | PROVIDERS: PCP Nurse Practitioner Family; Visit Provider Nurse Practitioner Family | DX: R39.9 Unspecified symptoms and signs involving the genitourinary system (principal) | CPT/HCPCS: 81003; 87086 ==

== ENCOUNTER 2025-06-22 20:01 | Emergency (ER) | payer MEDICAID, SELFPAY ==
--- OUTSIDE RECORDS SUMMARY | 2025-03-15 12:00 | XMS_ITS ---
Author Organization [facility] Address [address] [place] [address] Care Team Providers Care Electrophysiologist Name Role Phone Sara Archibald Primary Care Provider MARC Da Silva Unavailable [phone] CAPO TOBAR Unavailable [phone] REASON FOR VISIT Pt cx/ declined to r/s-- 1 yr w/ bmp/kub/jessica Encounters Encounter Location Date Provider Diagnosis [facility] [address] [place] [facility] [place] [address] 03/15/2025 CAPO TOBAR Plan Of Treatment No Information Progress Notes * Fiona PARNELL MDOB:1995 (29 yo F)Acc No.[id number]:03/15/2025 Progress Notes Patient: Parisa ThibodeauxDARION Fiona Mccauley Provider: Andry TOBAR MD :1995 A ge:29 Y S ex:Female Date:03/15/2025 Address:[address] [place] [address] [address], [place], [id number] Pcp:Sara Archibald Subjective: * Chief Complaints: * 1 . Pt cx/ declined to r/s-- 1 yr w/ bmp/kub/jessica. * Medical History: Objective: * Vitals: Assessment: Plan: * Treatment: * Billing Information: * Visit Code: * Procedure Codes: * Electronic signature of AUST IN MD AMADOU on 06/22/2025 at 08:04 PM CDT Sign off status: Pending * Provider: Andry TOBAR MD Date: 0 03/15/2025 Generated for Suhail aguilar/Farnk/Pamela on: 0 06/22/2025 08:04 PM CDT
--- OUTSIDE RECORDS SUMMARY | 2025-06-22 20:05 | XMS_ITS | Clinical Summary ---
Author Organization [facility] Address [address] [place] [address] Phone Care Team Providers Care Pulp Bleacher Name Role Phone Ronnie Olivarez DO Primary Care Provider [phone] Allergies Active Allergy Reactions Criticality Noted Date Comments Amoxicillin Rash Low 02/23/2009 Gentamicin Rash Low 02/23/2009 Latex Other (See Comments) 02/23/2009 Precaution only. Never had reaction Medications oxybutynin chloride SR 24 hour (DITROPAN XL) 10 mg Oral TO24 Take 10 mg by mouth daily. 2 Active oxybutynin chloride SR 24 hour (DITROPAN XL) 15 mg Oral TO24 Take 15 mg by mouth daily. Take with th 2 10 mg to equal 35 mg Active carbamazepine SR 12 hr (CARBATROL) 300 mg Oral CM12 Take 300 mg by mouth daily. 100 mg in the AM. 200 mg in the PM. 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 Gender Identity Not on file Sexual Orientation Not on file Last Filed Vital Signs Vital Sign Reading Time Taken Comments Blood Pressure 105/60 04/18/2009 2:31 PM CDT Pulse 100 04/18/2009 2:31 PM CDT Temperature 36.6 C (97.8 F) 04/18/2009 2:31 PM CDT Respiratory Rate 20 04/18/2009 2:31 PM CDT Oxygen Saturation 100% 04/18/2009 2:31 PM CDT Inhaled Oxygen Concentration - - Weight - - Height - - Body Mass Index - - Plan of Treatment Health Maintenance Due Date Last Done Comments DTAP/TDAP/TD VACCINES (1 - Tdap) 2013 HEPATITIS B VACCINES (1 of 3 - 19+ 3-dose series) 11/29 HPV/Cotest (21-29) 12/19/2015 HPV VACCINES (1 - 3-dose SCDM series) 2021 CERVICAL CANCER SCREENING 2024 HPV/Cotest (30-65) 2024 PAP SMEAR 2024 INFLUENZA VACCINE (#1) 2025 Insurance RR [id number] [id number] [employer] RR [id number] [place] [id number] [employer] Care Teams Pulp Bleacher Relationship Specialty Start Date End Date Ronnie Olivarez DO [address] [place] [address] PCP - General 02/23/09
--- OUTSIDE RECORDS SUMMARY | 2025-06-22 20:05 | XMS_ITS | Encounter Summary ---
Author Organization [facility] Address 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 Gender Identity Not on file Sexual Orientation Not on file documented as of this encounter Plan of Treatment Upcoming Encounters Date Type Department Care Team (Late st Contact Info) Description 07/15/2025 12:20 PM CDT Office Visit [facility] [address] [place] [address] Nico Miles MD [address] [place] [address] 07/19/2025 8:00 AM CDT Appointment [facility] [address] [place] [address] Frieda Mack MD [address] [place] [address] 07/30/2025 1:30 PM CDT Office Visit [facility] Neurosurgery [address] [place] [address] Alis Zabala, [facility] OT [address] [place] [address] 09/02/2025 2:50 PM LINE PRODUCTION COOK Office Visit [facility] - [place] [address] [place] [address] Frieda Mack MD [address] [place] [address] documented as of this encounter Visit Diagnoses Not on filedocumented in this encounter Care Teams Stevedore Dock Relationship Specialty Start Date End Date Ronnie Olivarez DO [address] [place] [address] PCP - General 02/23/09 documented as of this encounter
--- OUTSIDE RECORDS SUMMARY | 2025-06-22 20:05 | XMS_ITS | Patient Health Record ---
Author Organization [facility] Address [address] [place] [address] Care Team Providers Care Security Expert Name Role Phone Sara Archibald Primary Care Provider Unavailchristiano e MARC GANT Unavailable [phone] MERRILL YANG Unavailable [phone] CAPO TOBAR Unavailable [phone] Allergies Allergen (clinical drug ingredient) Drug/Non Drug Allergy documented on EMR Reaction Allergy Type Onset Date Status amoxicillin Amoxicillin allergy Drug Allergy Act inna gentamicin Gentamicin allergy Drug Allergy Activ e Latex Latex RASH Allergy Active mometasone Mometasone allergy Drug Allergy Activ e Penicillin allergy Drug Allergy Active Substance with sulfonamide structure and antibacterial mechanism of action (substance) Sulfa Antibiotics allergy Drug Allergy Active trimethoprim Trimethoprim allergy Drug Allergy A ctive Reason For Referral Reason Referral to [facility] for umbilical vesicostomy/stoma ( ) Diagnosis 1 Appendicovesicostomy stomal stenosis (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.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) Referral Organization [email or web address] Referring Provider First Name MARC Referring Provider Last Name STALIN [facility] Specialty Urology Referral Priority Routine Medications Medication SIG (Take, Route, Frequency, Duration) Notes Start Date End Date Status Cetirizine HCl 10 MG 1 tablet as needed Orally Once a day 12/25/2023 Active Citalopram Hydrobromide 40 MG 1 tablet Orally Once a day Active tiZANidine HCl 4 MG 1 capsule as needed Orally every 8 hours Not-Taking carBAMazepine ER 100 MG 1 capsule Orally three times a day 12/25/2023 Active Vitamin D2 Active buPROPion HCl 100 MG 1 tablet Orally Twi ce a day Active MiraLax Active Vitamin B12 monthly Active Flonase Not-Taking Vitamin D3 25 MCG (1000 UT) 1 tablet Orally Once a day Not-Taking Social History Tobacco Use: Social History Observation Description Date Details (start date - stop date) Unknown Tobacco Control (Standard) Question Answer Notes Tobacco use: Uses tobacco in other forms Problems Problem Type SNOMED Code ICD Code Onset Dates Problem Status W/U Status Risk Notes Problem Spina bifida (60584940) Spina bifida, unspecified (Q05.9) Active confirmed Problem Neurogenic bladder (391374728) Neurogenic bladder (N31.9) Active confirmed Problem Nephrosclerosis (34365894) Atrophic kidney (N26.1) Active confirmed Problem Hydronephrosis (92380278) Hydronephrosis (N13.30) Active confirmed Problem Urinary retention (782481614) Urinary retention (R33.9) Active confirmed Encounters Encounter Location Date Provider Diagnosis [email or web address], [facility] [address] [address] 06/29/2024 MARC GANT [facility], [facility] [address] [address] 07/07/2024 MARC GANT [facility], [facility] [address] [address] 07/15/2024 MERRILL YANG [facility], [facility] [address] [address] 08/12/2024 MARC GANT Plan Of Treatment Pending Test Test Name Order Date CT Abd & Pelvis W & [place] contrast [id number] 02/21/2024 Ultrasound : Kidneys and Bladder 024 Insurance Providers Payer Name Payer Address Payer Phone Subscriber Number Group Number Insured Name Patient Relationship to Insured Coverage Start Date Coverage End Date [place] Medicaid [address] [place], [place] [id number] [phone] [id number] Fiona Parnell Self - patient is the insured Medical (General) History Medical History History ICD Code seizures anxiety/depression stenosis of continent ileal conduit stom a paraplegia neurogenic bladder (treated with augmentation cystoplasty and catheterizable stoma spina bifada Surgical History Surgery Date(Month/Year) cholecystectomy back surgery rods for scoliosis urostomy S/P POUL[employer] 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
--- OUTSIDE RECORDS SUMMARY | 2025-06-22 20:05 | XMS_ITS | Clinical Summary ---
Author Organization [employer] Address [address] Attn: Epic Prelude ADT [place]ACY [place]ACOBSON [address] Care Team Providers Care Clinical Program Consultant Name Role Phone JuanisRonnie Primary Care Provider [phone] Allergies Active Allergy Reactions Criticality Noted Date Comments Amoxicillin Rash Low 02/23/2009 Chlorhexidine Gluconate Rash Low 06/10/2025 Gentamicin Rash Low 02/23/2009 Latex Other (See Comments) 02/23/2009 Precaution only. Never had reaction Sulfamethoxazole-Trimeth oprim Rash Low 06/10/2025 Medications tiZANidine (ZANAFLEX) 4 mg Capsule Take 4 mg by mouth every 8 hours. Active oxyBUTYnin (DITROPAN XL) 15 mg Extended Release 24 hour tablet 15 mg daily. 03/08/2025 Active busPIRone (BUSPAR) 15 mg Tablet Take 15 mg by mouth 2 times daily. 03/09/2025 Active carBAMazepine 100 mg chewable tablet Take 100 mg by mouth 3 times daily. Active cetirizine (ZyrTEC) 10 mg tablet Take 10 mg by mouth daily. 06/23/2024 Active citalopram (CeleXA) 40 mg tablet Take 40 mg by mouth daily. 03/09/2025 Active diclofenac sodium (VOLTAREN) 75 mg Tablet, Delayed Release (E.C.) Take 75 mg by mouth 2 times daily as needed. Active Active Problems Problem Noted Date Diagnosed Date Spina bifida with hydrocephalus, unspecified reg ion 02/23/2009 Pressure ulcer, buttock(707.05) 02/23/2009 Resolved Problems Problem Noted Date Diagnosed Date Resolved Date Seizure disorder 02/23/2009 06/11/2025 Encounters Date Type Department Care Team Description 06/16/2025 External Device Data STL ABSTRACTION Provider, Abstract 06/15/2025 External Device Data STL ABSTRACTION Provider, Abstract 06/15/2025 External Device Data STL ABSTRACTION Provider, Abstract 06/10/2025 11:30 AM CDT Office Visit [facility] Neurology - [address] [place] [address] Frieda Mack MD Seizure-like activity (CMS/HCC) (Primary Dx); Spina bifida, unspecified hydrocephalus presence, unspecified spinal region (CMS/HCC); Wheelchair dependent; Convulsions, unspecified convulsion type (CMS/HCC); Muscle spasticity from Last 3 Months Social History Tobacco Use Types Packs/Day Years Used Date Smoking Tobacco: Never Comments Unknown Sex and Gender Information Value Date Recorded Sex Assigned at Not on file Legal Sex Female 9:37 AM HALL DIRECTOR Gender Identity Not on file Sexual Orientation Not on file Last Filed Vital Signs Vital Sign Reading Time Taken Comments Blood Pressure 102/68 06/10/2025 11:12 AM CDT Pulse 84 06/10/2025 11:12 AM CDT Temperature - - Respiratory Rate - - Oxygen Saturation 98% 06/10/2025 11:12 AM CDT Inhaled Oxygen Concentration - - Weight 68 kg (150 lb) 06/10/2025 11:12 AM CDT Height 162.6 cm (5' 4 ) 06/10/2025 11:12 AM CDT Body Mass Index 25.75 06/10/2025 11:12 AM CDT Plan of Treatment Upcoming Encounters Date Type Department Care Team (Late st Contact Info) Description 07/15/2025 12:20 PM CDT Office Visit [facility] Pain Management [address] [place] [address] Nico Miles MD [address] [place] [address] 07/19/2025 8:[address] [facility] Neurology [place] [address] Frieda Mack MD [address] [place] [address] 07/30/2025 1:30 PM CDT Office Visit [facility] Neurosurgery [address] [place] [address] Zabala Alis Lida, BOTTOM BRUSHER [address] [place] [address] 09/02/2025 2:50 PM HALL DIRECTOR Office Visit [facility] Neurology - [place] [address] [place] [address] Frieda Mack MD [address] [place] [address] Health Maintenance Due Date Last Done Comments DTAP/TDAP/TD VACCINES (3 - Tdap) 2013 11/29/19 00, 04/25/1995 HPV/Cotest (21-29) 12/19/2015 HPV VACCINES (1 - 3-dose SCD M series) 2021 CERVICAL CANCER SCREENING 2024 HPV/Cotest (30-65) 2024 PAP SMEAR 2024 INFLUENZA VACCINE (#1) 2025 HEPATITIS B VACCINES Completed 07/03/1995, 01/24/1995, 1994 Insurance MEDICAID [place] Care Teams Clinical Program Consultant Relationship Specialty Start Date End Date Ronnie Olivarez DO [address] [place] [address] PCP - General 02/23/09
--- OUTSIDE RECORDS SUMMARY | 2025-06-22 20:05 | XMS_ITS | Encounter Summary ---
Author Organization [facility] Address [address] [place] [address] Care Team Providers Care Collaborating Supervising Physician Name Role Phone JuanisRonnie Primary Care Provider [phone] Encounter Details Date Type Department Care Team (Late st Contact Info) Description 06/15/2025 External Device Data STL ABSTRACTION Provider, Abstract NO ADDRESS ON FILE Social History Tobacco Use Types Packs/Day Years Used Date Smoking Tobacco: Never Comments Unknown Sex and Gender Information Value Date Recorded Sex Assigned at Not on file Legal Sex Female 9:37 AM COMBAT ENGINEER Gender Identity Not on file Sexual Orientation Not on file documented as of this encounter Plan of Treatment Upcoming Encounters Date Type Department Care Team (Late st Contact Info) Description 07/15/2025 12:20 PM CDT Office Visit [facility] Pain Management [address] [place] [address] Nico Miles MD [address] [place] [address] 07/19/2025 8:00 AM CDT Appointment [facility] Neurology Services [address] [place] [address] Frieda Mack MD [address] [place] [address] 07/30/2025 1:30 PM CDT Office Visit [facility] Neurosurgery [address] [place] [address] Alis Zabala, DERMATOLOGICAL SURGEON [address] [place] [address] 09/02/2025 2:50 PM COMBAT ENGINEER Office Visit [facility] Neurology - [place] [address] [place] [address] Frieda Mack MD [address] [place] [address] documented as of this encounter Visit Diagnoses Not on filedocumented in this encounter Care Teams Collaborating Supervising Physician Relationship Specialty Start Date End Date Ronnie Olivarez DO [address] [place] [address] PCP - General 02/23/09 documented as of this encounter
--- OUTSIDE RECORDS SUMMARY | 2025-06-22 20:05 | XMS_ITS | Patient Health Record ---
Author Organization [facility] Address [address] [place] [address] Care Team Providers Care Rotary Drill Rig Operator Name Role Phone Sara Archibald APRN Primary Care Provider Ernestine Amaya Unavailable [phone] JAELYN JASSO Unavailable Unavailable Luis Fernando Hunt Unavailable [phone] Allergies Allergen (clinical drug ingredient) Drug/Non Drug Allergy documented on EMR Reaction Allergy Type Onset Date Status sulfamethoxazole / trimethoprim Bactrim Unknown Drug Allergy Active mometasone Mometasone Furoate Unknown Drug Allergy Active amoxicillin Amoxicillin Unknown Drug Allergy Act inna gentamicin Gentamicin Unknown Drug Allergy Activ e Latex Latex Unknown Allergy Active Penicillin Unknown Drug Allergy Active Substance with sulfonamide structure and antibacterial mechanism of action (substance) Sulfa Antibiotics Unknown Drug Allergy A ctive trimethoprim Trimethoprim Unknown Drug Allergy A ctive Results Component Value Reference Range Flag [place] - [id number] Reviewed date:04/13/2025 02:26:52 PM Interpretation: Performing Lab: Notes/Report: Glucose 0 Bili 0 Ketones 0 Sp Steuben 1.010 Blood 1+ pH 6.5 Protein 0 Urobili 0 Nitrites + Leukocytes 2+ US Renal w/bladder-[id number] Reviewed date:03/26/2025 10:52:23 AM Interpretation: Performing Lab: Notes/Report: See Below For Report US Renal w/bladder To be completed no later than 04/06/2025. Thank you! Read See Below For [place] - [id number] Reviewed date:01/05/2025 11:19:06 AM Interpretation: Performing Lab: Notes/Report: Glucose - Bili 1+ Ketones - Sp Steuben 1.020 Blood 1+ pH 6.0 Protein 1+ Urobili - Nitrites + Leukocytes 3+ Basic Metabolic Panel (BMP) [id number] Reviewed date:03/26/2025 03:06:16 PM Interpretation: Performing Lab: Notes/Report: Diagnosis Description: Neuromuscular dysfunction of bladder, unspecified Sodium 139 136-145 MMOL/L Potassium 4.3 3.5-5.1 MMOL/L Chloride 106 98-107 MMOL/L CO2 24.5 20.0-31.0 MMOL/L Glucose Serum 55 71-110 MG/DL LOW Testing p erformed at [facility], [address] [place] [address] [place] [address]. CLIA ID#: [id number] BUN 9 7-21 MG/DL Creat .53 .51-1.17 MG/DL A-ygxahq-t-benzoquinone imine (NAPQI) is a metabolite of acetaminophen, NAPQI concentrations of apparoximately 10 mg/L correlation to toxic levels of acetaminophen demonstrates a greater than or equil to 10% change in results. NAPQI concentrations greater than this may lead to falsely depressed results for patient samples. Use of this assay is not recommended for patients undergoing treatment with phenindione, due to the potential for falsely depressed results. GFR 127.4 NA Calculation pe rformed from GFR calculator provided by the National [employer]. Glomerular Filtration rate(GRF) is the best overall index of kidney function. Normal GFR varies according to age,sex, body size, and declines with age. The National Kid[employer] Foundation recommends using the CKD-EPI Creatinine Equation(2020) to estimate GFR. Anion Gap 13 5-15 BUN/Creat Ratio 17.0 12.0-20.0 % Calcium 9.0 8.7-10.4 MG/DL Osmo Serum,Calculated 284 280-300 MOSM/KG US Renal w/bladder-[id number] Reviewed date:03/26/2025 10:41:54 AM Interpretation: Performing Lab: Notes/Report: [id number] Reason For Referral Reason Urinary retention Diagnosis 1 Urinary retention (R 33.9) Referred Organization [facility] Referred Provider Luis Fernando Hunt Referred Address [address],[place], [place],[address], Referred Provider Specialty Urology Referral Priority Routine Reason Referring to [facility] ur ology for possible reconstruction of urinary stoma. Thank you! Diagnosis 1 Urinary stoma compli cation (N99.528) Referral Organization [facility] Referring Provider First Name Luis Fernando Referring Provider Last Name Marilee Referring Provider Speciality Urology Referred Provider [facility], Urology - Luisa [place] Referred Provider Specialty Urology Referral Priority Routine Medications Medication SIG (Take, Route, Frequency, Duration) Notes Start Date End Date Status busPIRone HCl 15 MG Tablet 1 tablet Oral ly Twice a day Active oxyBUTYnin Chloride ER 15 MG Tablet Extended Release 24 Hour 1 tablet Orally Once a day Active Doxycycline Hyclate 100 MG Capsule 1 capsule Orally Once a day Active carBAMazepine ER 100 MG Tablet Extended Release 12 Hour 1 tablet Orally Twice a day; Duration: 30 days Active buPROPion HCl 100 mg Tablet TAKE ONE TABLET BY MOUTH TWICE DAILY; Duration: 30 days Not-Taking Biotin 10 MG Tablet 1 tablet Orally Once a day Active Loratadine 10 MG Tablet 1 tablet Orally Once a day Active Citalopram Hydrobromide 40 mg Tablet TAKE ONE TABLET BY MOUTH ONCE DAILY; Duration: 30 Active Social History Tobacco Use: Social History Observation Description Date Details (start date - stop date) Never Smoker NA - NA Social History Depression Screening Social Info Question Answer Notes PHQ-9 Little interest or pleasure in doing thin gs Not at all Feeling down, depressed, or hopeless Not at all Trouble falling or staying asleep, or sleeping t oo much Not at all Feeling tired or having little energy Not at all Poor appetite or overeating Not at all Feeling bad about yourself, or that you are a failure, or have let yourself or your family down Not at all Trouble concentrating on thi ngs, such as reading the newspaper or watching television Not at all Moving or speaking so slowly that other people could have noticed. Or the opposite ? being so fidgety or restless that you have been moving around a lot more than usual Not at all Thoughts that you would be b keith off , or of hurting yourself in some way Not at all Total Score 0 Drugs/Alcohol: Social Info Question Answer Notes Alcohol Screen (Audit-C) Did you have a drink containing alcohol in the past year? No Points 0 Interpretation Negative Tobacco Use: Social Info Question Answer Notes xTobacco Use/Smoking Are you a nonsmoker Section Notes: 01/13/21 01/13/21 01/13/21 07/04/22 PHQ9 01/13/21 07/04/22 PHQ9 01/13/21 07/04/22 PHQ9 01/13/21 07/04/22 PHQ9 01/13/21 07/04/22 PHQ9 01/13/21 07/04/22 PHQ9 01/13/21 07/04/22 PHQ9 01/13/21 07/04/22 PHQ9 01/13/21 07/04/22 PHQ9 01/13/21 07/04/22 PHQ9 Problems Problem Type SNOMED Code ICD Code Onset Dates Problem Status W/U Status Risk Notes Problem Catheterization of urinary bladder (068420319) Mejia catheter in place (Z92.89) Active confirmed Problem Scoliosis (233376599) Scoliosis (M41.9) Active confirmed Problem Depression (093611459) Depression (F32.9) Active confirmed Problem Seizure disorder (712929335) Seizure disorder (G40.909) Active confirmed Problem Neurogenic bladder (486374558) Neurogenic bladder (N31.9) Active confirmed Problem Spina bifida (77122972) Spina bifida, unspecified hydrocephalus presence, unspecified spinal region (Q05.9) Active confirmed Problem Urinary stoma complication (N99.528) Active confirmed Vital Signs Heart Rate 97 /min 04/13/2025 Temperature 98.40 degrees Fahrenheit 04/13/2025 Height-cm 162.56 cm 04/13/2025 Blood pressure diastolic 62 mm Hg 04/13/2025 Weight-kg 62.6 kg 04/13/2025 Height 64 in 04/13/2025 Blood pressure systolic 99 mm Hg 04/13/2025 Weight 138.0 lbs 04/13/2025 BMI 23.69 kg/m2 04/13/2025 Encounters Encounter Location Date Provider Diagnosis [facility] [address] [place] [address] Dr Brewer [address] [place] [address] 10/12/2024 Ernestine Juarez Neurogenic bladder N31.9 ; Spina bifida, unspecified hydrocephalus presence, unspecified spinal region Q05.[address] Z92.89 [facility] [address] [place] [address] [address] [place] [address] 01/05/2025 Luis Fernando Hunt Neurogenic bladder N31.9 [facility] [address] [place] [address] Dr [address] [place] [address] 01/12/2025 Luis Fernando Hunt Neurogenic bladder N31.9 and Spina bifida, unspecified hydrocephalus presence, unspecified spinal region Q05.9 [facility] [address] [place] [address] Dr [address] [place] [address] 04/13/2025 Ernestine Juarez Neurogenic bladder N31.9 ; Mejia catheter in place Z92.89 and Urinary stoma complication N99.528 [facility] [address] [place] [address] Dr [address] [place] [address] 10/12/2024 Luis Fernando Ortezsay [facility] [address] [place] [address] Dr [address] [place] [address] 10/12/2024 Luis Fernando Marilee [facility] [address] [place] [address] [address] [place] [address] 12/22/2024 Luis Fernando Ortezsay [facility] [address] [place] [address] [address] [place] [address] 12/29/2024 Luis Fernando Ortezsay [facility] [address] [place] [address] [address] [place] [address] 01/12/2025 Luis Fernando Hunt Neurogenic bladder N31.9 [facility] [address] [place] [address] Dr [address] [place] [address] 01/12/2025 Luis Fernando Ortezsay [facility] [address] [place] [address] [address] [place] [address] 01/14/2025 Luis Fernando Ortezsay [facility] [address] [place] [address] [address] [place] [address] 02/18/2025 Luis Fernando [facility] [address] [place] [address] Dr [address] [place] [address] 04/13/2025 Luis Fernando Hunt Neurogenic bladder N31.9 Assessments Encounter Date Diagnosis (ICD Code) Assessment Notes Treatment Notes Treatment Clinical Notes Section Notes 10/12/2024 Neurogenic bladder (ICD-10 - N31.9) Neurogenic Bladder: Patient Information Overview: Neurogenic bladder is a condition where the nerves that control the bladder are damaged, leading to problems with bladder function. This can result in either an overactive bladder (frequent, urgent urination) or an underactive bladder (difficulty emptying the bladder). Symptoms: Urinary Incontinence: Uncontrolled leakage of urine. Urinary Retention: Inability to empty the bladder completely. Frequent Urination: Needing to urinate more often than usual. Urgency: A sudden, strong urge to urinate. Nocturia: Frequent urination during the night. Recurrent Urinary Tract Infections (UTIs): Due to incomplete bladder emptying. Causes: Spinal Cord Injury: Damage to the spinal cord can disrupt nerve signals to the bladder. Multiple Sclerosis (MS): A disease that affects the central nervous system. Diabetes: Can cause nerve damage affecting bladder control. Parkinson's Disease: A neurological disorder that can impact bladder function. Stroke: Can affect the brain's ability to control the bladder. Pelvic Surgery: Procedures that may damage nerves controlling the bladder. Diagnosis: Medical History and Physical Exam: To identify symptoms and potential causes. Urinalysis: To check for infections or other abnormalities. Postvoid Residual Measurement: Measures the amount of urine left in the bladder after urination. Urodynamic Tests: Assess how well the bladder and urethra store and release urine. Imaging Tests: Ultrasound, MRI, or CT scans to visualize the urinary tract. Treatment: Medications: Anticholinergics: To relax the bladder muscles and reduce urgency and frequency. Botulinum Toxin (Botox): Injections into the bladder muscle to reduce overactivity. Catheterization: Intermittent Catheterization: Inserting a catheter periodically to empty the bladder. Indwelling Catheter: A catheter that remains in place to continuously drain urine. Bladder Training: Techniques to improve bladder control and establish a regular urination schedule. Surgical Options: Bladder Augmentation: Increasing bladder capacity using a piece of the intestine. Urinary Diversion: Creating a new way for urine to exit the body if the bladder is severely damaged. Neuromodulation: Electrical stimulation of nerves to improve bladder function. Prevention: Manage Underlying Conditions: Proper management of conditions like diabetes and MS. Avoid Bladder Irritants: Limit caffeine, alcohol, and spicy foods. Regular Monitoring: Regular check-ups with a healthcare provider to monitor bladder function. Patient Education: Understanding the Condition: Educate patients about the causes, symptoms, and treatment options for neurogenic bladder. Self-Care Techniques: Teach patients how to perform intermittent catheterization and bladder training. Lifestyle Modifications: Encourage changes in diet, fluid intake, and habits to improve bladder control. Monitoring Symptoms: Keep a diary of symptoms and triggers to help manage the condition effectively. When to Seek Medical Attention: Persistent or worsening symptoms. Signs of a urinary tract infection (e.g., fever, chills, pain during urination). Inability to urinate or severe pain in the lower abdomen. 10/12/2024 Spina bifida, unspecified hydrocephalus presence, unspecified spinal region (ICD-10 - Q05.9) 01/05/2025 Neurogenic bladder (ICD-10 - N31.9) 01/12/2025 Neurogenic bladder (ICD-10 - N31.9) 01/12/2025 Spina bifida, unspecified hydrocephalus presence, unspecified spinal region (ICD-10 - Q05.9) 01/12/2025 Neurogenic bladder (ICD-10 - N31.9) 04/13/[address] (ICD-10 - Z92.89) 04/13/2025 Neurogenic bladder (ICD-10 - N31.9) 04/13/2025 Neurogenic bladder (ICD-10 - N31.9) 10/12/[address] (ICD-10 - Z92.89) 04/13/2025 Urinary stoma complication (ICD-10 - N99.528) 01/12/2025 Other 3 months with renal ultrasound With BMP Fax UDS report to Dr. Leslie. Fax a copy of referral to location given by patients mother. Change indwelling catheter monthly. Proceed with reconstruction of Mitrofanoff stoma per Dr. Leslie at [facility]. Plan Of Treatment Future Test Test Name Order Date Basic Metabolic Panel (BMP) 25501 2024 CBC w\ Auto Diff [id number] 08/30/2025 Comprehensive Metabolic Panel (CMP) 8005 3 08/30/2025 US Renal w/bladder-69865 08/30/2025 Next Appt Details Provider Name:Ernestine Borden, 10/15/2025 11:20:00 AM, [address] [facility], [place], [address], Insurance Providers Payer Name Payer Address Payer Phone Subscriber Number Group Number Insured Name Patient Relationship to Insured Coverage Start Date Coverage End Date [place] [address] [place] [id number] Fiona Parnell Self - patient is the insured Medications Administered Medication Instructions Date of Administration Dosage Notes Sterile Water for Injection 01/05/2025 10 mL Used to inflate balloon of catheter. Medical (General) History Medical History History ICD Code spina bifida Surgical History Surgery Date(Month/Year) bladder stoma 02/24/25 several spine surgeries Hospitalization History Reason Date(Month/Year) see surgery
--- OUTSIDE RECORDS SUMMARY | 2025-06-22 20:05 | XMS_ITS | Encounter Summary ---
Author Organization [facility] Address [address] [place] [address] Care Team Providers Care Mining Plant Operator Name Role Phone Ronnie Olivarez Primary Care Provider [phone] Encounter Details Date Type Department Care Team (Late st Contact Info) Description 06/16/2025 External Device Data STL ABSTRACTION Provider, Abstract NO ADDRESS ON FILE Social History Tobacco Use Types Packs/Day Years Used Date Smoking Tobacco: Never Comments Unknown Sex and Gender Information Value Date Recorded Sex Assigned at Not on file Legal Sex Female 9:37 AM MANAGEMENT TECH Gender Identity Not on file Sexual Orientation Not on file documented as of this encounter Plan of Treatment Upcoming Encounters Date Type Department Care Team (Late st Contact Info) Description 07/15/2025 12:20 PM CDT Office Visit [facility] Pain Management [address] [place] [address] Nico Miles MD [address] [place] [address] 07/19/2025 8:00 AM CDT Appointment [facility] Neurology Services [address] [place] [address] Frieda Mack MD [address] [place] [address] 07/30/2025 1:30 PM CDT Office Visit [facility] Neurosurgery [address] [place] [address] Alis Zabala, INSTALLATION TECHNICIAN [address] [place] [address] 09/02/2025 2:50 PM MANAGEMENT TECH Office Visit [facility] Neurology - [place] [address] [place] [address] Frieda Mack MD [address] [place] [address] documented as of this encounter Visit Diagnoses Not on filedocumented in this encounter Care Teams Mining Plant Operator Relationship Specialty Start Date End Date Ronnie Olivarez DO [address] [place] [address] PCP - General 02/23/09 documented as of this encounter
[2025-06-22 20:12] VITALS: BP 119/77; PULSE 120; RESP 14; TEMP 37; O2SAT 100
--- NOTE | 2025-06-22 20:17 | ECG_ITS ---
[facility] Test Date: 2025-06-22 Pat Name: Fiona Cabayer Department: Room: Gender: Female Artist Agent: : [id number] Requested By: Sylvia Fraser Order Number: [id number] Belle MD: Desean Parnell M.D. Measurements Intervals [place] Rate: 119 P: 25 OR: 130 QRS: 40 QRSD: 85 T: 20 QT: 349 QTc: 493 Interpretive Statements SINUS TACHYCARDIA ABNORMAL RHYTHM ECG No previous ECG available for comparison Electronically Signed On 06-23-2025 21:19:03 CDT by Desean Parnell M.D. [id number]
--- NOTE | 2025-06-22 20:24 | XRR_ITS ---
PROCEDURE INFORMATION: Exam: XR Chest Exam date and time: 06/22/2025 8:29 PM Age: 29 years old Clinical indication: Shortness of breath; Prior surgery; Surgery date: 6+ months; Surgery type: Shunt spine; Exam done twice; Additional info: SOB TECHNIQUE: Imaging protocol: Radiologic exam of the chest. Views: 1 view. COMPARISON: CT abdomen pelvis wo/w [id number] 12/03/2024 4:28 PM FINDINGS: Tubes, catheters and devices: Partially imaged bilateral ventriculoperitoneal shunt catheters with dense calcification along the course of the right catheter. No discrete catheter disruption. Lungs: Bibasilar, szwom-yhetlqm-jmcy-left, airspace opacities may represent atelectasis and/or airspace disease. Pleural spaces: Unremarkable. No pleural effusion. No pneumothorax. Heart/Mediastinum: Unremarkable. No cardiomegaly. Bones/joints: Unremarkable. XR/XR chest 1V portable [id number] IMPRESSION: Bibasilar, czrqg-dqocpwp-tdqm-left, airspace opacities may represent atelectasis and/or airspace disease.
[2025-06-22 21:24] LABS: Hematocrit 41.1 % (36-47); Hemoglobin 13.40 g/dL (11.27-16.99); Mean Corpuscular HGB Conc 32.6 g/dL (30-55); Mean Corpuscular Hemoglobin 30.2 pg (27-33); Mean Corpuscular Volume 92.6 fl (85-98); Nucleated Red Blood Cells % 0 %; Platelet Count 292 10^3/cmm (157-399); Red Blood Count 4.44 10^6/uL (3.85-5.65); White Blood Count 13.77 10^3/uL (3.29-11.43)
--- NOTE | 2025-06-22 21:41 | ED_ITS ---
HPI - SOB/Dyspnea 2 General: Chief Complaint: Shortness of Breath/Dyspnea Stated Complaint: Sob, Hot/cold, headache CP when taking deep breath Time Seen by Provider: 06/22/25 21:28 Source: patient Mode of arrival: ambulatory Limitations: no limitations History of Present Illness: HPI Narrative: 29-year-old female states that today she has been having some chills states she has also been having some shortness of breath along with feeling like she cannot get a deep breath then. She denies any cough or severe chest pain. She denies any fevers. Patient states that she was recently started on Macrobid today for UTI. Patient is wheelchair-bound. No history of blood clots or heart issues. Related Data Home Medications ?Medication ?Instructions ?Recorded ?Confirmed polyethylene glycol 3350 17 17 gm PO .PRN 10/27/19 gram/dose oral powder (Miralax) oxybutynin chloride 15 mg 15 mg PO DAILY 03/09/2506/01 tablet,extended release 24 hr Previous Rx's ?Medication ?Instructions ?Recorded fartun wheelchair #1 ea 03/17/21 wheelchair repairs #1 ea 03/17/21 W/C Repair #1 ea 11/20/21 tizanidine 4 mg tablet 4 mg PO Q8H PRN muscle spast icity 01/07/23 #30 tabs urinary catheters straight tip #120 ea 03/26/23 ergocalciferol (vitamin D2) 1,250 1,250 mcg PO .weekly #12 caps 10/11/23 mcg (50,000 unit) capsule cetirizine 10 mg tablet See Rx Instructions .Route 0 06/23/24 .COMPLEX #90 tabs 3mL syringe with 23 gauge needle x #4 ea 10/22/24 1in cholecalciferol (vitamin D3) 1,250 50,000 unit PO .WEE KLY #12 caps 10/22/24 mcg (50,000 unit) capsule cyanocobalamin (vitamin B-12) See Rx Instructions .Rou te 01/20/25 1,000 mcg/mL injection solution .COMPLEX #1 mL buspirone 15 mg tablet 15 mg PO BID #60 tabs carbamazepine 100 mg See Rx Instructions .Route 0 03/09/25 tablet,extended release,12 hr .COMPLEX #90 tabs citalopram 40 mg tablet See Rx Instructions .Route 0 03/09/25 .COMPLEX #30 tabs nitrofurantoin 100 mg PO Q12H 7 days #14 ca ps 06/21/25 monohydrate/macrocrystals 100 mg capsule (Macrobid) Allergies Allergy/AdvReac Type Severity Reaction Status Date / Time amoxicillin Allergy NA Verified 06/22/25 20:19 chlorhexidine (From Allergy rash Verified 06/22/25 20:19 Hibiclens) gentamicin Allergy NA Verified 06/22/25 20:19 latex Allergy Rash Verified 06/22/25 20:19 mometasone furoate Allergy NA Verified 06/22/25 20:19 Penicillins Allergy NA Verified 06/22/25 20:19 sulfamethoxazole (From Allergy rash Verified 06/22/25 20:19 Bactrim) trimethoprim (From Bactrim) Allergy rash Verified 06/22/25 20:19 PFSH ED 2 PFSH: Medical History (Updated 06/22/25 @ 23:35 by Sylvia Fraser MD) 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 Surgical History History of cholecystectomy Previous back surgery lindsey in back for scolosis History of urostomy S/P [employer] shunt H/O bladder repair surgery Augmentation cystoplasty with catheterizable stoma Family History Family/Other No problems noted. Social History Smoking and tobacco/nicotine status: never used tobacco/nicotine Second hand smoke exposure: No Alcohol intake: current Alcohol intake frequency: few times a month Substance/Drug Use: never Lives independently: Yes Household members: none Marital status: Single Highest education level completed: High School Graduate service: No Current occupational status: disabled Current gender identity: Female Special stacy needs: No Agree to transfusion: Yes Course 2 Vital Signs: Vital signs: Vital Signs Temperature 98.6 F 06/22/25 20:12 Pulse Rate 118 H 06/22/25 23:00 Respiratory Rate 14 06/22/25 20:12 Blood Pressure 125/82 06/22/25 23:00 Pulse Oximetry 100 06/22/25 23:00 Oxygen Delivery Me thod Room Air 06/22/25 23:00 MDM - SOB/Dyspnea Medical Decision Making Patient presents here with some dyspnea she has been well-appearing here pulse ox has been 100%. Some tachycardia but states she is always tachycardic. Her D-dimer is negative no signs of pulm emboli x-ray shows no signs of pneumonia she had no cough or fever states she has felt improved since she has been here she is currently on antibiotics for UTI and is to continue did go over her blood work along with EKG and x-ray with her and family. She is to follow-up with PCP in 2 to 4 days and return if worsening she understands agrees to plan Differential Diagnosis Likely congestive heart failure, community acquired pneumonia and pulmonary embolism Medical Records I reviewed the patient's medical records. Lab Data I reviewed the patient's lab results. 06/22/25 21:02 06/22/25 21:02 Labs/Radiology: Radiology Impressions Chest X-Ray 06/22/25 20:24 IMPRESSION: Bibasilar, firod-ehuaczf-snss-left, airspace opacities may represent atelectasis and/or airspace disease. Laboratory Results WBC 13.77 10^3/uL (3.29-11.43) H 06/22/25 21:02 RBC 4.44 10^6/uL (3.85-5.65) 06/22/25 21:02 Hgb 13.40 g/dL (11.27-16.99) 06/22/25 21:02 Hct 41.1 % (36-47) 06/22/25 21:02 MCV 92.6 fl (85-98) 06/22/25 21:02 MCH 30.2 pg (27-33) 06/22/25 21:02 MCHC 32.6 g/dL (30-55) 06/22/25 21:02 RDW 12.6 % (12.1-15.1) 06/22/25 21:02 Plt Count 292 10^3/cmm (157-399) 06/22/25 21:02 MPV 9.7 fL (7.4-10.4) 06/22/25 21:02 Neut % (Auto) 91.1 % 06/22/25 21:02 Lymph % (Auto) 4.0 % 06/22/25 21:02 [place] % (Auto) 3.0 % 06/22/25 21:02 Eos % (Auto) 1.2 % 06/22/25 21:02 Baso % (Auto) 0.3 % 06/22/25 21:02 Neut # (Auto) 12.55 10^3/uL (1.8-7.7) H 06/22/25 21:02 Lymph # (Auto) 0.6 10^3/uL (0.8-4.8) L 06/22/25 21:02 [place] # (Auto) 0.4 10^3/uL (0.2-0.9) 06/22/25 21:02 Eos # (Auto) 0.2 10^3/uL (0.0-0.8) 06/22/25 21:02 Baso # (Auto) 0.0 10^3/uL (0.0-0.1) 06/22/25 21:02 Nucleated RBC % (auto) 0 % 06/22/25 21:02 Nucleated RBCs # 0.0 /100WBC 06/22/25 21:02 D-Dimer 0.58 ug/mLFEU (0-0.59) 06/22/25 21:02 Sodium 138 mmol/L (136-145) 06/22/25 21:02 Potassium 4.4 mmol/L (3.5-5.1) 06/22/25 21:02 Chloride 100 mmol/L (98-107) 06/22/25 21:02 Carbon Dioxide 24 mmol/L (22-29) 06/22/25 21:02 Anion Gap 18.4 (5-19) 06/22/25 21:02 BUN 9 mg/dL (6-20) 06/22/25 21:02 Creatinine 0.6 mg/dL (0.5-0.9) 06/22/25 21:02 GFR Calculation 117.4 mL/min (90-130) 06/22/25 21:02 Glucose 87 mg/dL (65-115) 06/22/25 21:02 Calculated Osmolality 284 mOsm/kg (285-295) L 06/22/25 21:02 Lactic Acid 1.8 mmol/L (0.5-2.2) 06/22/25 21:02 Calcium 9.1 mg/dL (8.5-10.5) 06/22/25 21:02 Total Bilirubin 0.2 mg/dL (0.15-1.2) 06/22/25 21:02 AST 13 U/L (0-32) 06/22/25 21:02 ALT 12 U/L (0-33) 06/22/25 21:02 Alkaline Phosphatase 122 U/L (35-105) H 06/22/25 21:02 Troponin T Baseline 7 ng/L (0-10) 06/22/25 21:02 NT-Pro-B Natriuret Pep 119 pg/mL (0-125) 06/22/25 21:02 Total Protein 6.9 g/dL (6.6-8.7) 06/22/25 21:02 Albumin 4.4 g/dL (3.5-5.2) 06/22/25 21:02 Globulin 2.5 g/dL (1.3-4.6) 06/22/25 21:02 Influenza A (PCR) Negative (Negative) 06/22/25 22:14 Influenza Type B (PCR) Negative (Negative) 06/22/25 22:14 RSV (PCR) Negative (Negative) 06/22/25 22:14 SARS-CoV-2 (PCR) Negative (Negative) 06/22/25 22:14 XR interpretation done by ED provider, pending radiology final review ED provider radiology interpretation(s): cxr: no acute pneumonia Discharge Plan Discharge Patient Disposition: Home Clinical Impression: Shortness of breath Condition: Stable Prescriptions: No Action polyethylene glycol 3350 [Miralax] 17 gram/dose powder 17 gm PO .PRN (DME) wheelchair repairs See Rx Instructions .Route .MEDSUPPLY Qty: 1 0RF Rx Instructions: As directed tizanidine 4 mg tablet 4 mg PO Q8H PRN (Reason: muscle spasticity) Qty: 30 1RF oxybutynin chloride 15 mg tablet extended release 24hr 15 mg PO DAILY buspirone 15 mg tablet 15 mg PO BID Qty: 60 5RF citalopram 40 mg tablet See Rx Instructions .ROUTE .COMPLEX Qty: 30 5RF Dose Instruction: TAKE ONE TABLET BY MOUTH EVERY DAY Rx Instructions: TAKE ONE TABLET BY MOUTH EVERY DAY carbamazepine 100 mg tablet extended release 12 hr See Rx Instructions .ROUTE .COMPLEX Qty: 90 5RF Dose Instruction: TAKE ONE TABLET BY MOUTH THREE TIMES DAILY Rx Instructions: TAKE ONE TABLET BY MOUTH THREE TIMES DAILY nitrofurantoin monohyd/m-cryst [Macrobid] 100 mg capsule 100 mg PO Q12H 7 Days Qty: 14 0RF Rx Instructions: must administer with a meal/food (DME) fartun wheelchair See Rx Instructions .Route .MEDSUPPLY Qty: 1 0RF Rx Instructions: As directed (DME) W/C Repair See Rx Instructions .Route .MEDSUPPLY Qty: 1 0RF Rx Instructions: As directed (DME) urinary catheters straight tip See Rx Instructions .Route .MEDSUPPLY Qty: 120 12RF Rx Instructions: SELF CATH 4 TIMES DAILY ergocalciferol (vitamin D2) 1,250 mcg (50,000 unit) capsule 1,250 mcg PO .weekly Qty: 12 0RF cetirizine 10 mg tablet See Rx Instructions .ROUTE .COMPLEX Qty: 90 3RF Dose Instruction: TAKE ONE TABLET BY MOUTH DAILY NEEDED FOR allergy symptoms Rx Instructions: TAKE ONE TABLET BY MOUTH DAILY NEEDED FOR allergy symptoms cholecalciferol (vitamin D3) 1,250 mcg (50,000 unit) capsule 50,000 unit PO .WEEKLY Qty: 12 1RF (DME) 3mL syringe with 23 gauge needle x 1in See Rx Instructions .Route .MEDSUPPLY Qty: 4 0RF Rx Instructions: As directed cyanocobalamin (vitamin B-12) 1,000 mcg/mL solution See Rx Instructions .ROUTE .COMPLEX Qty: 1 3RF Dose Instruction: INJECT 1 ML INTRAMUSCULARLY ONCE monthly Rx Instructions: INJECT 1 ML INTRAMUSCULARLY ONCE monthly Discharge Orders: Discharge ED (Routine); Ordered 06/22/25 Ordered By: Sylvia Fraser Referrals: Sara Archibald FNP [Primary Care Provider, Family Practice] - 4-7 days Discharge Diet: Advance as tolerated Discharge Activity: Resume usual activity Patient Instructions: Dyspnea (ED) Print Language: Australian Coding Level of Care Code ED Instructional Material Director for Lyle Lehman
[2025-06-22 21:45] LABS: Troponin(5th) Baseline 7 ng/L (0-10)
[2025-06-22 21:49] LABS: Lactic Sepsis W/Reflex 1.8 mmol/L (0.5-2.2)
[2025-06-22 21:59] LABS: Alanine Aminotransferase 12 U/L (0-33); Albumin Level 4.4 g/dL (3.5-5.2); Alkaline Phosphatase 122 U/L (35-105); Anion Gap 18.4 (5-19); Aspartate Amino Transferase 13 U/L (0-32); Blood Urea Nitrogen 9 mg/dL (6-20); Calcium 9.1 mg/dL (8.5-10.5); Carbon Dioxide 24 mmol/L (22-29); Chloride 100 mmol/L (98-107); Creatinine Clr Calc Pharmacy 130.3303; Globulin 2.5 g/dL (1.3-4.6); Glucose 87 mg/dL (65-115); NT Pro B Type Natriuretic Pept 119 pg/mL (0-125); Osmolality Calculated 284 mOsm/kg (285-295); Potassium 4.4 mmol/L (3.5-5.1); Sodium 138 mmol/L (136-145); Total Protein 6.9 g/dL (6.6-8.7)
[2025-06-22 22:23] VITALS: BP 124/86; PULSE 120; O2SAT 100
[2025-06-22 22:30] VITALS: BP 131/84; PULSE 120; O2SAT 100
[2025-06-22 23:00] VITALS: BP 125/82; PULSE 118; O2SAT 100
[2025-06-22 23:28] LABS: Respiratory Syncytial Virus Ce NEGATIVE (Negative); SARS-CoV-2 PCR NEGATIVE (Negative)
[2025-06-22 23:43] VITALS: BP 129/88; PULSE 126; O2SAT 99
[2025-06-23 00:06] LABS: Troponin 5 2HR 7.30 ng/L (0-10); Troponin 5 2HR Delta 0.30 ABS# (0-10)
== END 2025-06-22 23:47 | disposition home or self-care (01) ==
PROVIDERS: Emergency Provider Emergency Medicine; PCP Nurse Practitioner Family
DX: R06.02 Shortness of breath (principal); Z11.52 Encounter for screening for COVID-19
CPT/HCPCS: 36415; 71045; 80053; 83605; 83880; 84484; 85025; 85378; 87040; 87637; 93005; 96360; 99285; J7030

== ENCOUNTER → 2025-06-23 10:08 | Outpatient (BNVA) | payer MEDICAID, SELFPAY | PROVIDERS: PCP Nurse Practitioner Family; Visit Provider Thoracic Surgery (Cardiothoracic Vascular Surgery) | DX: I96 Gangrene, not elsewhere classified (principal); L89.893 Pressure ulcer of other site, stage 3 | CPT/HCPCS: 97597 ==

== ENCOUNTER → 2025-06-30 10:07 | Outpatient (BNVA) | payer MEDICAID, SELFPAY | PROVIDERS: PCP Nurse Practitioner Family; Visit Provider Thoracic Surgery (Cardiothoracic Vascular Surgery) | DX: I96 Gangrene, not elsewhere classified (principal); L89.893 Pressure ulcer of other site, stage 3 | CPT/HCPCS: 97597; A6212 ==

== ENCOUNTER → 2025-07-09 12:35 | Outpatient (BNVA) | payer MEDICAID, SELFPAY | PROVIDERS: PCP Nurse Practitioner Family; Visit Provider Nurse Practitioner Family | DX: N39.0 Urinary tract infection, site not specified (principal); R33.9 Retention of urine, unspecified | CPT/HCPCS: 81003; 87077; 87086; 87184 ==

== ENCOUNTER → 2025-07-14 10:09 | Outpatient (BNVA) | payer MEDICAID, SELFPAY | PROVIDERS: PCP Nurse Practitioner Family; Visit Provider Thoracic Surgery (Cardiothoracic Vascular Surgery) | DX: I96 Gangrene, not elsewhere classified (principal); L89.893 Pressure ulcer of other site, stage 3 | CPT/HCPCS: 97597; A6212 ==

== ENCOUNTER → 2025-07-28 10:08 | Outpatient (BNVA) | payer MEDICAID, SELFPAY | PROVIDERS: PCP Nurse Practitioner Family; Visit Provider Thoracic Surgery (Cardiothoracic Vascular Surgery) | DX: Z09 Encounter for follow-up examination after completed treatment for conditions other than malignant neoplasm (principal); Z87.2 Personal history of diseases of the skin and subcutaneous tissue | CPT/HCPCS: 99212; A6212 ==